=== PATIENT | male | born 1945 | race Hispanic/Latino ===

== ENCOUNTER 2017-06-13 13:45 | Emergency (ER) | payer OTHER ==
[2017-06-13] MEDS ORDERED: NA CHLORIDE 0.9% 500 ML ONE (14:10)
[2017-06-13 14:55] LABS: Potassium 4.1 mEq/L (3.6-5.0)
--- NOTE | 2017-06-13 14:55 | RAD REPORT ---
EXAM DESCRIPTION: CT - Head Brain Wo Cont - 06/13/2017 2:32 pm CLINICAL HISTORY: Syncope, headache. COMPARISON: 03/05/2016 TECHNIQUE: All CT scans are performed using dose optimization technique as appropriate and may inclu de automated exposure control or mA/KV adjustment according to patient size. FINDINGS: No intracranial hemorrhage, hydrocephalus or extra-axial fluid collection.Mild generalized brain atrophy is present with mild periventricular and deep white matter chronic microvascular ische ciaran changes.No areas of brain edema or evidence of midline shift. The paranasal sinuses and mastoids are clear. The calvarium is intact. IMPRESSION: No acute intracranial abnormality.
[2017-06-13 14:58] LABS: Absolute Lymphocytes (CBC) 2.7 K/uL (0.7-4.9); Absolute Monocytes 0.8 K/uL (0.1-1.3); Absolute Neutrophil 5.4 K/uL (1.8-8.0); Basophils % 0.4 % (0-1.3); Eosinophils % 1.3 % (0-4.4); Hematocrit 38.5 % (39.6-49.0); MCH 30.9 pg (27.0-35.0); MCV 92.6 fL (80-100); MPV 9.7 fL (7.6-11.3); Monocytes % 8.6 % (3.3-12.3); RBC Red Blood Cell Count 4.16 M/uL (4.33-5.43)
--- NOTE | 2017-06-13 16:27 | EKG ---
Test Date: 2017-06-13 Test Time: 14:54:48 Forensic Scientist: TREVER MEASUREMENT RESULTS: Intervals: Rate: 48 DE: 124 QRSD: 88 QT: 472 QTc: 421 [place]: P: 39 DE: 124 QRS: 5 T: 20 INTERPRETIVE STATEMENTS: Sinus bradycardia Otherwise normal ECG Compared to ECG 03/05/2016 08:57:24 Sinus rhythm no longer present Incomplete right bundle-branch block no longer present Electronically Signed On 06-13-17 16:26:55 CDT by Se Malik
--- NOTE | 2017-06-13 16:47 | ER ---
Nurse's Notes [facility] Name: Koby Gilman Age: 71 yrs Sex: Male : 1945 Arrival Date: 06/13/2017 Time: 13:49 Bed 8 Private MD: Diagnosis: Syncope and collapse Presentation: 06/13 13:44 Presenting complaint: [place] and had a sv syncopal episode. No head injury. BS -120, HR 40-50s, SBP on arrival was 80, NS 600 ml bolus given and placed in Trendelenburg, SBP up to 104. A\T\O x1 normal. Transition of care: patient was not received from another setting of care. Onset of symptoms was June 13, 2017. Care prior to arrival: IV initiated. 18 GA, in the right forearm, Glucose check: 120. 13:44 Method Of Arrival: EMS: [facility] sv 13:44 Acuity: EDWAR 2 sv Triage Assessment: 13:50 General: Appears in no apparent distress. comfortable, well developed, Behavior is sv calm, cooperative, appropriate for age. Pain: Denies pain. EENT: No signs and/or symptoms were reported regarding the EENT system. Neuro: Level of Consciousness is awake, alert, obeys commands, Oriented to person, Moves all extremities. Reports Family reports syncopal episode. Respiratory: Respiratory effort is even, unlabored, Respiratory pattern is regular, symmetrical. Derm: Skin is pink, warm \T\ dry. Historical: - Allergies: 13:55 NKA; sv - Home Meds: 13:55 donepezil 10 mg Oral tab twice a day [Active]; Namenda 28 mg Oral daily [Active]; sv topiramate 25 mg Oral tab 2 times per day [Active]; - PMHx: 13:55 acid reflux; Dementia; sv - PSHx: 13:55 None; sv - Family history:: not pertinent. - Hospitalizations: : No recent hospitalization is reported. Screenin:57 Abuse screen: Denies threats or abuse. Denies injuries from another. Nutritional sv screening: No deficits noted. Tuberculosis screening: No symptoms or risk factors identified. Fall Risk No fall in past 12 months (0 pts). Secondary diagnosis (15 points) Alzheimer's, dementia, IV access (20 points). Ambulatory Aid- None/Bed Rest/Nurse Assist (0 pts). Gait- Normal/Bed Rest/Wheelchair (0 pts) Mental Status- Overestimates/Forgets Limitations (15 pts.). Total Larose Fall Scale indicates High Risk Score (45 or more points). Fall prevention measures have been instituted. Side Rails Up X 2 Placed Close to Nursing Station Frequent Obs/Assessments Occuring Family Present and informed to notify staff if the need to leave the bedside As available patient and family educated on Fall Prevention Program and Strategies. Assessment: 14:00 Reassessment: See triage assessment. sv 15:38 Reassessment: Patient appears in no apparent distress at this time. No changes from sv previously documented assessment. Patient and/or family updated on plan of care and expected duration. Pain level reassessed. Patient is alert, oriented x 3, equal unlabored respirations, skin warm/dry/pink. Vital Signs: 13:56 BP 123 / 59; Pulse 49; Resp 12; Temp 97.9; Pulse Ox 96% ; Weight 80.74 kg; Height 5 ft. sv 6 in. (167.64 cm); Pain 0/10; 14:57 BP 123 / 62; Pulse 46; Resp 13; Pulse Ox 100% on R/A; sv 15:39 BP 140 / 70; Pulse 61; Resp 12; Pulse Ox 99% ; sv 16:30 BP 145 / 65; Pulse 56; Resp 14; Pulse Ox 98% ; ag 17:04 BP 143 / 71; Pulse 63; Resp 16; Pulse Ox 98% on R/A; ag 13:56 Body Mass Index 28.73 (80.74 kg, 167.64 cm) sv ED Course: 13:44 Maintain EMS IV. Dressing intact. Good blood return noted. Gauge \T\ site: 18G R FA. sv 13:49 Patient arrived in ED. sv 13:49 Ni Pradhan, MARIANN is Primary Nurse. sv 13:51 Triage completed. sv 13:55 Freddy Quarles MD is Attending Physician. rn 13:56 Arm band placed on right wrist. sv 13:58 Patient has correct armband on for positive identification. Bed in low position. Call sv light in reach. Side rails up X2. Adult w/ patient. fish cutting machine operator on. Pulse ox on. NIBP on. Door closed. Head of bed elevated. 14:[address] via wheelchair. sj 14:32 CT Head Brain wo Cont In Process Unspecified. EDMS 15:19 EKG done, by food technologist. reviewed by Freddy Quarles MD. at1 Administered Medications: 14:18 Drug: NS 0.9% 500 ml Route: IV; Rate: bolus; Site: right forearm; sv 15:38 Follow up: Response: No adverse reaction; IV Status: Completed infusion; IV Intake: sv 500ml Intake: 15:38 IV: 500ml; Total: 500ml. sv Outcome: 16:47 Discharge ordered by . rn 17:39 Patient left the ED. sv Signatures: Dispatcher [employer] EDMS Ni Pradhan, RN RN Harini Ramirez, MD MD mariann Hayes Amanda, foundation relations manager EKG Tat1 Asia Iraheta ag
--- NOTE | 2017-06-13 16:47 | EDPHYS ---
Physician Documentation [facility] Name: Koby Gilman Age: 71 yrs Sex: Male : 1945 Arrival Date: 06/13/2017 Time: 13:49 Bed 8 Private MD: ED Physician Freddy Quarles HPI: 06/13 16:43 This 71 yrs old Male presents to ER via EMS with complaints of Syncope. rn 16:43 The patient has experienced syncope. Onset: The symptoms/episode began/occurred just rn prior to arrival. Duration: This was a single episode. Associated injury: The patient did not suffer any apparent associated injury. The patient has not experienced similar symptoms in the past. reports hx of dementia, no previous syncope, was sitting and saw him hunched over, no seizure, woke up and laid him on floor, didn't want to call 911 but someone else did, now at baseline, denies new medication, no vomiting/diarrhea/fever/cough recently. . Historical: - Allergies: 13:55 NKA; sv - Home Meds: 13:55 donepezil 10 mg Oral tab twice a day [Active]; Namenda 28 mg Oral daily [Active]; sv topiramate 25 mg Oral tab 2 times per day [Active]; - PMHx: 13:55 acid reflux; Dementia; sv - PSHx: 13:55 None; sv - Immunization history:: Adult Immunizations up to date. - Family history:: not pertinent. - Social history:: Smoking status: Patient/guardian denies using tobacco. - Hospitalizations: : No recent hospitalization is reported. ROS: 16:43 Constitutional: Negative for fever, chills, and weight loss, Eyes: Negative for injury, rn pain, redness, and discharge, Neck: Negative for injury, pain, and swelling, Cardiovascular: Negative for chest pain, palpitations, and edema, Respiratory: Negative for shortness of breath, cough, wheezing, and pleuritic chest pain, Abdomen/GI: Negative for abdominal pain, nausea, vomiting, diarrhea, and constipation, Back: Negative for injury and pain, MS/Extremity: Negative for injury and deformity, Skin: Negative for injury, rash, and discoloration, Neuro: Negative for headache, weakness, numbness, tingling, and seizure. Exam: 16:43 Abdomen/GI: Exam negative for rn 16:43 Constitutional: This is a well developed, well nourished patient who is awake, alert, and in no acute distress. Head/Face: Normocephalic, atraumatic. Eyes: Pupils equal round and reactive to light, extra-ocular motions intact. Lids and lashes normal. Conjunctiva and sclera are non-icteric and not injected. Cornea within normal limits. Periorbital areas with no swelling, redness, or edema. Neck: Trachea midline, no thyromegaly or masses palpated, and no cervical lymphadenopathy. Supple, full range of motion without nuchal rigidity, or vertebral point tenderness. No Meningismus. Cardiovascular: Regular rate and rhythm with a normal S1 and S2. No gallops, murmurs, or rubs. Normal PMI, no JVD. No pulse deficits. Respiratory: Lungs have equal breath sounds bilaterally, clear to auscultation and percussion. No rales, rhonchi or wheezes noted. No increased work of breathing, no retractions or nasal flaring. Abdomen/GI: Soft, non-tender, with normal bowel sounds. No distension or tympany. No guarding or rebound. No evidence of tenderness throughout. MS/ Extremity: Pulses equal, no cyanosis. Neurovascular intact. Full, normal range of motion. Equal circumference. Neuro: Awake and alert, GCS 15, oriented to person, and situation. Cranial nerves II-XII grossly intact. Motor strength 5/5 in all extremities. Sensory grossly intact. Cerebellar exam normal. Vital Signs: 13:56 BP 123 / 59; Pulse 49 MON; Resp 12; Temp 97.9; Pulse Ox 96% ; Weight 80.74 kg; Height 5 sv ft. 6 in. (167.64 cm); Pain 0/10; 14:57 BP 123 / 62; Pulse 46; Resp 13; Pulse Ox 100% on R/A; sv 15:39 BP 140 / 70; Pulse 61; Resp 12; Pulse Ox 99% ; sv 16:30 BP 145 / 65; Pulse 56 MON; Resp 14; Pulse Ox 98% ; sv 17:04 BP 143 / 71; Pulse 63; Resp 16; Pulse Ox 98% on R/A; ag 13:56 Body Mass Index 28.73 (80.74 kg, 167.64 cm) sv 13:56 Sinus bradycardia sv 16:30 Sinus bradycardia sv MDM: 13:55 Patient medically screened. rn 16:43 Differential Diagnosis: cardiac arrhythmia, idiopathic syncope, vasovagal episode. Data rn reviewed: vital signs, nurses notes, lab test result(s), EKG, radiologic studies, and as a result, I will. Counseling: I had a detailed discussion with the patient and/or guardian regarding: the historical points, exam findings, and any diagnostic results supporting the discharge/admit diagnosis, lab results, radiology results. ED course: initally did not want any labs or imaging, I convinced her to atleast screen with w/u, she agreed, but now wants to go home, does not want to be observed in hospital. She understands risks of taking him home. . 06/13 14:08 Order name: Urine Microscopic Only rn 06/13 14:08 Order name: Troponin (emerg Dept Use Only); Complete Time: 15:03 rn 06/13 14:08 Order name: Basic Metabolic Panel; Complete Time: 15:03 rn 06/13 14:08 Order name: CBC with Diff; Complete Time: 15:03 rn 06/13 14:08 Order name: Magnesium; Complete Time: 15:03 rn 06/13 16:25 Order name: Urine Dipstick-Ancillary EDDE 06/13 14:08 Order name: CT Head Brain wo Cont; Complete Time: 15:03 rn 06/13 14:08 Order name: EKG; Complete Time: 14:09 rn 06/13 14:08 Order name: Cardiac monitoring; Complete Time: 14:18 rn 06/13 14:08 Order name: EKG - Nurse/Tech; Complete Time: 15:39 rn 06/13 14:08 Order name: IV Saline Lock; Complete Time: 14:18 rn 06/13 14:08 Order name: Labs collected and sent; Complete Time: 14:18 rn 06/13 14:08 Order name: NPO; Complete Time: 14:19 rn 06/13 14:08 Order name: O2 Per Protocol; Complete Time: 14:19 rn 06/13 14:08 Order name: O2 Sat Monitoring; Complete Time: 14:19 rn 06/13 14:08 Order name: Urine Dipstick-Ancillary (obtain specimen); Complete Time: 16:07 rn Administered Medications: 14:18 Drug: NS 0.9% 500 ml Route: IV; Rate: bolus; Site: right forearm; sv 15:38 Follow up: Response: No adverse reaction; IV Status: Completed infusion; IV Intake: sv 500ml Disposition: 06/13/17 16:47 Discharged to Home. Impression: Syncope and collapse. - Condition is Stable. - Discharge Instructions: Syncope. - Medication Reconciliation Form, Thank You Letter, Antibiotic Education, Prescription Opioid Use form. - Follow up: Private Physician; When: As needed; Reason: Recheck today's complaints, Re-evaluation by your physician. - Problem is new. - Symptoms have improved. Signatures: Dispatcher [employer] Ni Cheung RN RN sv Freddy Quarles MD MD rn
[2017-06-13 16:53] LABS: Urine Blood NEGATIVE (NEG); Urine Glucose NEGATIVE (NEG); Urine Protein TRACE (NEG); Urine Specific Gravity 1.015 (1.005-1.030)
[2017-06-13 17:04] LABS: Urine Amorphous Sediment 1+ /HPF (NONE SEEN); Urine Bacteria <20 /HPF (NONE SEEN); Urine Culture Reflex Order NOT NEEDED; Urine Mucus 4+ /HPF (NONE SEEN); Urine RBC <5 /HPF (NONE SEEN)
[2017-06-13 17:58] VITALS: TEMP 97.9
[2017-06-13 18:02] VITALS: O2SAT 98
[2017-06-13 18:03] VITALS: BP 143/71
== END 2017-06-13 17:39 | disposition home or self-care (01) ==
LOC: ER 13:45
DX: R55 Syncope and collapse (principal); F03.90 Unspecified dementia, unspecified severity, without behavioral disturbance, psychotic disturbance, mood disturbance, and anxiety
CPT/HCPCS: 36415; 70450; 80048; 81003; 81015; 83735; 84484; 85025; 93005; 96360; 99285

== ENCOUNTER 2018-07-01 12:50 | Emergency (ER) | payer OTHER ==
--- OUTSIDE RECORDS SUMMARY | 2018-07-01 12:51 | XMS REPORT | Continuity of Care Document ---
:1945 Author Organization Interface Problems Problem Status Onset Date Classification Date Comments Source Reported Medications Medication Details Route Status Patient Ordering Order Source Instructions Provider Date Allergies, Adverse Reactions, Alerts Substance Category Reaction Severity Reaction Status Date Comments Source type Reported Immunizations Immunization Date Given Site Status Last Updated Comments Source Results Order Results Value Reference Date Interpretation Comments Source Name Range Vital Signs Vital Sign Value Date Comments Source Encounters Location Location Encounter Encounter Reason Attending ADM DC Status Source Details Type Number For Provider Date Date Visit Outpatient [id number] [facility] 03/01 [facility] [place] Outpatient [id number] [facility] 03/29 [facility] [place] Outpatient [id number] [facility] 07/05 [facility] [place] Procedures Procedure Code Date Perfomer Comments Source
[2018-07-01] MEDS ORDERED: NA CHLORIDE 0.9% 1,000 ML ONE (14:04)
[2018-07-01] MEDS ORDERED: TETANUS & DIPHTHERIA TOX,ADULT 0.5 ML VIAL ONE (14:04)
--- NOTE | 2018-07-01 14:48 | RAD REPORT ---
EXAM DESCRIPTION: CT - Head C Spine Cap Wo Con - 07/01/2018 2:23 pm CLINICAL HISTORY: Fall, head, neck, chest and abdomen pain, symptoms primarily right-sided COMPARISON: None. TECHNIQUE: Axial [address] head images were obtained. Axial [address] cervical spine images were obtain ed with sagittal and coronal reconstruction images reviewed. Axial 5 mm images of the chest, abdomen and pelvis were obtained. All CT scans are performed using dose optimization technique as appropriate and may include automated exposure control or mA/KV adjustment according to patient size. FINDINGS: No intracranial hemorrhage, mass or edema. No midline shift or abnormal fluid collection. Mastoid air cells and paranasal sinuses are clear. No skull fracture. Patient has advanced atrophy a nd chronic ischemic change. Ventricles are in proportion to volume loss. A small right parietal scalp hematoma is present. No foreign body. Cervical bodies are normal in height and alignment. No fracture or acute bone finding.C5-6 and C6-7 d isc space narrowing is present. Multilevel facet joint degenerative change present. There is signific ant right bony foraminal encroachment at C5-6. Canal is borderline stenotic. More mild left-sided C5- 6 and C6-7 bony foraminal encroachment.No prevertebral soft tissue thickening or paraspinal mass.Cent ral canal detail is inherently limited on CT imaging.There is a 4 centimeter long left carotid stent. Patency cannot be assessed on this study. CT chest shows no pneumothorax, pulmonary contusion or pleural fluid collection. No mediastinal hem atoma and the aorta and pulmonary arteries are unremarkable. No chest will mass or abnormal axillary finding. No displaced rib fracture or other significant bony finding. CT abdomen and pelvis show no injury to solid abdominal viscera. Gallbladder and biliary tree are unr emarkable. No bowel injury or significant finding. No free air, free fluid or abnormal stranding. No hernia, mass or bulky lymphadenopathy. No urinary bladder abnormality. Disc and bony degenerative changes are present. No pathologic bone process. No significant or measura ble soft tissue mass or hematoma. IMPRESSION: Advanced atrophy and chronic ischemic changes are present with no acute CT Head intracra nial finding. Advanced cervical spine degenerative change with no acute finding. No acute findings of the chest, abdomen or pelvis.
--- NOTE | 2018-07-01 14:49 | RAD REPORT ---
EXAM DESCRIPTION: RAD - Forearm Right - 07/01/2018 2:42 pm CLINICAL HISTORY: Fall, right arm pain COMPARISON: None. FINDINGS: Elbow and wrist degenerative joint changes are present. There is spurring at the triceps t endon attachment. No fracture is identified. There is no dislocation or periosteal reaction noted. No acute or destructive bone process seen. No foreign body or other soft tissue abnormality. Arterial tree calcifications are present. IMPRESSION: Right wrist and elbow degenerative changes are present with no acute fracture finding.
--- NOTE | 2018-07-01 14:51 | RAD REPORT ---
EXAM DESCRIPTION: RAD - Hand Right 2 View - 07/01/2018 2:43 pm CLINICAL HISTORY: Fall, right hand and wrist pain COMPARISON: None. FINDINGS: Distal radius and ulna are intact. Carpal bone degenerative changes are present most notab le at the trapezium first metacarpal articulation. MCP joint space narrowing present at the third, fo urth and fifth joints. IP joint space narrowing throughout the hand. No erosive or destructive change . On the ulna side of the fifth digit proximal phalanx there is an oblique lucent line present. This is not a typical site for a fracture. Fracture is doubtful without localizing symptoms to the base of the fifth proximal phalanx. There is no dislocation or periosteal reaction noted. No foreign body or other soft tissue abnormali ty. Arterial tree calcifications are present. IMPRESSION: Right hand degenerative changes are present with no acute fracture confirmed. Faint oblique lucency through the ulna side base of the right fifth proximal phalanx is doubtful is a n acute fracture but correlation can be made with any localizing symptoms.
--- NOTE | 2018-07-01 14:52 | RAD REPORT ---
EXAM DESCRIPTION: RAD - Chest Single View - 07/01/2018 2:43 pm CLINICAL HISTORY: Fall from bed, right-sided chest trauma COMPARISON: February 2016 TECHNIQUE: AP portable chest image was obtained 1433 hours . FINDINGS: Lung volumes are low. Lung markings are similar to comparison. No pulmonary contusion or a cute lung parenchymal process. Heart and vasculature are normal. No measurable pleural effusion and n o pneumothorax. No acute bony abnormality seen. No acute aortic findings suspected. IMPRESSION: No acute cardiopulmonary process.
[2018-07-01 15:17] LABS: Protime INR 1.06
[2018-07-01 15:27] LABS: Absolute Lymphocytes (CBC) 1.3 K/uL (0.7-4.9); Absolute Monocytes 1.4 K/uL (0.1-1.3); Absolute Neutrophil 8.7 K/uL (1.8-8.0); Basophils % 0.1 % (0-1.3); Hematocrit 39.7 % (39.6-49.0); Lymphocytes % 11.6 % (15.3-44.8); MPV 9.5 fL (7.6-11.3); Monocytes % 12.6 % (3.3-12.3)
[2018-07-01 15:31] LABS: ALT/SGPT 22 U/L (12-78); AST/SGOT 66 U/L (15-37); Albumin 3.2 g/dL (3.4-5.0); Alkaline Phosphatase 54 U/L (45-117); BUN Blood Urea Nitrogen 13 mg/dL (7-18); Bicarbonate 25 mmol/L (21-32); Bilirubin Direct 0.1 mg/dL (0-0.2); Bilirubin Total 0.4 mg/dL (0.2-1.0); Glucose Level 92 mg/dL (74-106); Lipase 109 U/L (73-393); Magnesium 2.3 mg/dL (1.8-2.4); NT PRO-BNP 383 pg/mL (<125); Protein, Total 6.7 g/dL (6.4-8.2); Sodium Level 144 mmol/L (136-145); Troponin (Emerg Dept Use Only) < 0.02 ng/mL (0.0-0.045)
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
[2018-07-01 15:44] LABS: CKMB Creatine Kinase MB 20.8 ng/mL (0.3-3.6)
[2018-07-01 16:34] VITALS: TEMP 97.9
[2018-07-01 16:37] VITALS: BP 162/69; O2SAT 98
--- NOTE | 2018-07-02 08:48 | EKG ---
Test Date: 2018-07-01 Test Time: 14:49:44 Music Video Producer: [employer] MEASUREMENT RESULTS: Intervals: Rate: 65 OH: 110 QRSD: 88 QT: 418 QTc: 434 [place]: P: 42 OH: 110 QRS: 15 T: 43 INTERPRETIVE STATEMENTS: Sinus rhythm with short OH Otherwise normal ECG Compared to ECG 06/13/2017 14:54:48 Short OH interval now present Sinus bradycardia no longer present Electronically Signed On 07-02-18 08:47:56 CDT by Se Malik
== END 2018-07-01 16:28 | disposition home or self-care (01) ==
LOC: ER 12:50
DX: S00.90XA Unspecified superficial injury of unspecified part of head, initial encounter (principal); S80.921A Unspecified superficial injury of right lower leg, initial encounter; W17.89XA Other fall from one level to another, initial encounter; Y93.89 Activity, other specified; Y92.013 Bedroom of single-family (private) house as the place of occurrence of the external cause; S80.11XA Contusion of right lower leg, initial encounter; T21.21XA Burn of second degree of chest wall, initial encounter; T31.0 Burns involving less than 10% of body surface; T79.9XXA Unspecified early complication of trauma, initial encounter; M62.82 Rhabdomyolysis; F03.90 Unspecified dementia, unspecified severity, without behavioral disturbance, psychotic disturbance, mood disturbance, and anxiety; Z23 Encounter for immunization
CPT/HCPCS: 93005; 85025; 80048; 36415; 83735; 82550; 85610; 80076; 84484; 82553; 83690; 83880; 70450; 71250; 72125; 71045; 73120; 73090; 90471; 90714; 96360; 99285; J7030

== ENCOUNTER 2019-01-25 13:10 | Emergency (ER) | payer OTHER ==
[2019-01-25] MEDS ORDERED: Mastisol Adhesive Liq ONE (14:43)
--- NOTE | 2019-01-25 14:56 | ER ---
Nurse's Notes [facility] Name: Koby Gilman Age: 73 yrs Sex: Male : 1945 Arrival Date: 01/25/2019 Time: 13:17 Bed 13 Private MD: Diagnosis: Facial/Nasal Laceration, Fall , contusion Presentation: 01/25 13:21 Presenting complaint: EMS states: FALL AT HOME WITHOUT LOC, PT AT NEURO BASELINE. bp Transition of care: patient was not received from another setting of care. Onset of symptoms is unknown. Risk Assessment: Do you want to hurt yourself or someone else? Patient reports no desire to harm self or others. Initial Sepsis Screen: Does the patient meet any 2 criteria? No. Patient's initial sepsis screen is negative. Does the patient have a suspected source of infection? No. Patient's initial sepsis screen is negative. Care prior to arrival: IV initiated. 20 GA, in the left antecubital area. 13:21 Method Of Arrival: EMS: [facility] bp 13:21 Acuity: EDWAR 3 bp Triage Assessment: 13:23 General: Appears in no apparent distress. comfortable, Behavior is AT BASELINE. Pain: bp Unable to use pain scale. Does not appear to understand pain scale. EENT: No deficits noted. Neuro: NON-VERBAL AT BASELINE. Cardiovascular: Rhythm is sinus bradycardia. Respiratory: No deficits noted. GI: No signs and/or symptoms were reported involving the gastrointestinal system. : No signs and/or symptoms were reported regarding the genitourinary system. Derm: No deficits noted. Musculoskeletal: Circulation, motion, and sensation intact. Range of motion: intact in all extremities. Injury Description: Laceration sustained to nose SKIN TEAR. Historical: - Allergies: 13:23 NKA; bp - Home Meds: 13:23 Risperdal Oral [Active]; divalproex Oral [Active]; Mirtazapine Oral [Active]; bp - PMHx: 13:23 Dementia; acid reflux; Alzheimers; bp - Immunization history:: Adult Immunizations up to date. - Social history:: Smoking status: Patient/guardian denies using tobacco. - Ebola Screening: : No symptoms or risks identified at this time. Screenin:26 Abuse screen: Denies threats or abuse. Denies injuries from another. Nutritional bp screening: No deficits noted. Tuberculosis screening: No symptoms or risk factors identified. Fall Risk Fall in past 12 months (25 points). Secondary diagnosis (15 points) Alzheimer's, dementia, IV access (20 points). Ambulatory Aid- Crutches/Cane/Walker (15 pts). Gait- Weak (10 pts.). Mental Status- Overestimates/Forgets Limitations (15 pts.). Total Larose Fall Scale indicates High Risk Score (45 or more points). Fall prevention measures have been instituted. Side Rails Up X 2 Placed Close to Nursing Station Frequent Obs/Assessments Occuring Family Present and informed to notify staff if the need to leave the bedside As available patient and family educated on Fall Prevention Program and Strategies. Assessment: 13:26 General: SEE TRIAGE NOTE. bp 15:14 Reassessment: PT D/C HOME VIA W/C WITH FAMILY, DX WITH FACIAL LACERATION. bp Vital Signs: 13:23 BP 113 / 61; Pulse 43; Resp 16; Temp 97.5; Pulse Ox 100% ; Weight 71.67 kg; Height 5 bp ft. 6 in. (167.64 cm); 14:49 BP 124 / 65; Pulse 54; Resp 16; Pulse Ox 100% ; bp 15:15 BP 130 / 59; Pulse 45; Resp 14; Temp 97.6; Pulse Ox 100% ; bp 13:23 Body Mass Index 25.50 (71.67 kg, 167.64 cm) bp Carol Ann Coma Score: 15:00 Eye Response: spontaneous(4). Verbal Response: oriented(5). Motor Response: obeys kdr commands(6). Total: 15. ED Course: 13:17 Patient arrived in ED. hb 13:21 Mariano Blood, RN is Primary Nurse. bp 13:22 Triage completed. bp 13:23 Arm band placed on. bp 13:26 Patient has correct armband on for positive identification. Bed in low position. Call bp light in reach. Side rails up X2. Adult w/ patient. 13:26 Maintain EMS IV. Dressing intact. Good blood return noted. Site clean \T\ dry. Gauge \T\ bp site: 20 GAUGE LEFT AC. 14:20 Rogelio Alvares MD is Attending Physician. kdr 14:48 Wound care: to laceration located on nose was cleaned with soap and water, dressed with bp STERI-STRIPS. 15:14 No provider procedures requiring assistance completed. IV discontinued, intact, bp bleeding controlled, No redness/swelling at site. Pressure dressing applied. Administered Medications: No medications were administered Outcome: 14:55 Discharge ordered by MD. kdr 15:14 Discharged to home via wheelchair, with family. bp 15:14 Condition: stable 15:14 Discharge instructions given to family, Instructed on discharge instructions, follow up and referral plans. medication usage, wound care, Demonstrated understanding of instructions, follow-up care, medications, wound care, Prescriptions given X 1. 15:15 Patient left the ED. bp Signatures: Rogelio Alvares MD MD [facility] Melanie Mancera, RN RN Mariano Blood RN RN bp
--- NOTE | 2019-01-25 14:56 | EDPHYS ---
Physician Documentation [facility] Name: Koby Gilman Age: 73 yrs Sex: Male : 1945 Arrival Date: 01/25/2019 Time: 13:17 Bed 13 Private MD: ED Physician Rogelio Alvares HPI: 01/25 15:00 This 73 yrs old Male presents to ER via EMS with complaints of facial kdr trauma/nose bleed. 15:00 The patient or guardian reports abrasion, injury, a laceration, clean, complex, kdr irregular, pain, tenderness. The complaints affect the bridge of nose. Context of injury: The problem was sustained at home, resulted from a fall, while walking. Onset: The symptoms/episode began/occurred suddenly, just prior to arrival. Associated signs and symptoms: The patient has no apparent associated signs or symptoms, Loss of consciousness: This patient did not experience any loss of consciousness. Severity of symptoms: At their worst the symptoms were mild, in the emergency department the symptoms are unchanged. The patient has not experienced similar symptoms in the past. The patient has not recently seen a physician. Historical: - Allergies: 13:23 NKA; bp - Home Meds: 13:23 Risperdal Oral [Active]; divalproex Oral [Active]; Mirtazapine Oral [Active]; bp - PMHx: 13:23 Dementia; acid reflux; Alzheimers; bp - Immunization history:: Adult Immunizations up to date. - Social history:: Smoking status: Patient/guardian denies using tobacco. - Ebola Screening: : No symptoms or risks identified at this time. ROS: 15:00 Constitutional: Negative for fever, chills, and weight loss, Eyes: Negative for injury, kdr pain, redness, and discharge, Neck: Negative for injury, pain, and swelling, Cardiovascular: Negative for chest pain, palpitations, and edema, Respiratory: Negative for shortness of breath, cough, wheezing, and pleuritic chest pain, Abdomen/GI: Negative for abdominal pain, nausea, vomiting, diarrhea, and constipation, Back: Negative for injury and pain, : Negative for injury, bleeding, discharge, and swelling, MS/Extremity: Negative for injury and deformity, Neuro: Negative for headache, weakness, numbness, tingling, and seizure activity. Psych: Negative for depression, anxiety, suicide ideation, homicidal ideation, and hallucinations, Allergy/Immunology: Negative for hives, rash, and allergies, Endocrine: Negative for neck swelling, polydipsia, polyuria, polyphagia, and marked weight changes, Hematologic/Lymphatic: Negative for swollen nodes, abnormal bleeding, and unusual bruising. 15:00 Skin: Positive for abrasion(s), erythema. Exam: 15:00 Constitutional: This is a well developed, well nourished patient who is awake, alert, kdr and in no acute distress. Head/Face: Normocephalic, atraumatic. Eyes: Pupils equal round and reactive to light, extra-ocular motions intact. Lids and lashes normal. Conjunctiva and sclera are non-icteric and not injected. Cornea within normal limits. Periorbital areas with no swelling, redness, or edema. Neck: Trachea midline, no thyromegaly or masses palpated, and no cervical lymphadenopathy. Supple, full range of motion without nuchal rigidity, or vertebral point tenderness. No Meningismus. Chest/axilla: Normal chest wall appearance and motion. Nontender with no deformity. No lesions are appreciated. Cardiovascular: Regular rate and rhythm with a normal S1 and S2. No gallops, murmurs, or rubs. Normal PMI, no JVD. No pulse deficits. Respiratory: Lungs have equal breath sounds bilaterally, clear to auscultation and percussion. No rales, rhonchi or wheezes noted. No increased work of breathing, no retractions or nasal flaring. Abdomen/GI: Soft, non-tender, with normal bowel sounds. No distension or tympany. No guarding or rebound. No evidence of tenderness throughout. Back: No spinal tenderness. No costovertebral tenderness. Full range of motion. Skin: Warm, dry with normal turgor. Normal color with no rashes, no lesions, and no evidence of cellulitis. MS/ Extremity: Pulses equal, no cyanosis. Neurovascular intact. Full, normal range of motion. Neuro: Awake and alert, GCS 13, - demnetia. Cranial nerves II-XII grossly intact. Motor strength 5/5 in all extremities. Sensory grossly intact. Cerebellar exam normal. Psych: Awake, alert, with orientation to person, place and time. Behavior, mood, and affect are within normal limits. Vital Signs: 13:23 BP 113 / 61; Pulse 43; Resp 16; Temp 97.5; Pulse Ox 100% ; Weight 71.67 kg; Height 5 bp ft. 6 in. (167.64 cm); 14:49 BP 124 / 65; Pulse 54; Resp 16; Pulse Ox 100% ; bp 15:15 BP 130 / 59; Pulse 45; Resp 14; Temp 97.6; Pulse Ox 100% ; bp 13:23 Body Mass Index 25.50 (71.67 kg, 167.64 cm) bp Bellwood Coma Score: 15:00 Eye Response: spontaneous(4). Verbal Response: oriented(5). Motor Response: obeys kdr commands(6). Total: 15. MDM: 14:55 Patient medically screened. kdr 18:00 Data reviewed: vital signs, nurses notes, lab test result(s). Counseling: I had a kdr detailed discussion with the patient and/or guardian regarding: the historical points, exam findings, and any diagnostic results supporting the discharge/admit diagnosis, lab results, the need for outpatient follow up. 01/25 14:37 Order name: [place]. Order: Steri-strip nose wound; Complete Time: 14:48 kdr Administered Medications: No medications were administered Disposition: 01/25/19 14:55 Discharged to Home. Impression: Facial/Nasal Laceration, Fall , contusion. - Condition is Stable. - Discharge Instructions: Facial Laceration, [id number], Nasal Fracture, [id number]. - Prescriptions for Keflex 500 mg Oral Capsule - take 1 capsule by ORAL route every 8 hours for 3 days; 12 capsule. - Medication Reconciliation Form, Thank You Letter, Antibiotic Education form. - Follow up: Private Physician; When: 2 - 3 days; Reason: If symptoms return, Further diagnostic work-up, Recheck today's complaints, Continuance of care, Re-evaluation by your physician. - Problem is new. - Symptoms have improved. Signatures: Rogelio Alvares MD MD kdr Mariano Blood RN RN bp Corrections: (The following items were deleted from the chart) 15:15 14:55 01/25/2019 14:55 Discharged to Home. Impression: Facial/Nasal Laceration, Fall , bp contusion. Condition is Stable. Forms are Medication Reconciliation Form, Thank You Letter, Antibiotic Education, Prescription Opioid Use. Follow up: Private Physician; When: 2 - 3 days; Reason: If symptoms return, Further diagnostic work-up, Recheck today's complaints, Continuance of care, Re-evaluation by your physician. Problem is new. Symptoms have improved. kdr
== END 2019-01-25 15:15 | disposition home or self-care (01) ==
LOC: ER 13:10
DX: S01.21XA Laceration without foreign body of nose, initial encounter (principal); W19.XXXA Unspecified fall, initial encounter; Y93.01 Activity, walking, marching and hiking; Y92.009 Unspecified place in unspecified non-institutional (private) residence as the place of occurrence of the external cause; G30.9 Alzheimer's disease, unspecified; F02.80 Dementia in other diseases classified elsewhere, unspecified severity, without behavioral disturbance, psychotic disturbance, mood disturbance, and anxiety
CPT/HCPCS: 99284

== ENCOUNTER 2019-05-03 12:03 | Emergency (ER) | payer OTHER ==
[2019-05-03] MEDS ORDERED: NA CHLORIDE 0.9% 0 ML ONE (14:29)
[2019-05-03] MEDS ORDERED: NA CHLORIDE 0.9% 250 ML ONE (14:31)
[2019-05-03 14:37] LABS: Basophils % 0.3 % (0-1.3); Hematocrit 34.5 % (39.6-49.0); Lymphocytes % 8.3 % (15.3-44.8); MPV 9.6 fL (7.6-11.3); RBC Red Blood Cell Count 3.69 M/uL (4.33-5.43)
--- NOTE | 2019-05-03 14:38 | RAD REPORT ---
EXAM DESCRIPTION: Nimesh Single View05/03/2019 2:29 pm CLINICAL HISTORY: Leukocytosis COMPARISON: 2018 FINDINGS: The lungs appear clear of acute infiltrate. The heart is normal size IMPRESSION: No acute abnormalities displayed
[2019-05-03 14:57] LABS: ALT/SGPT 13 U/L (12-78); AST/SGOT 18 U/L (15-37); Albumin 2.6 g/dL (3.4-5.0); Alkaline Phosphatase 57 U/L (45-117); BUN Blood Urea Nitrogen 15 mg/dL (7-18); Bicarbonate 30 mmol/L (21-32); Bilirubin Direct 0.1 mg/dL (0-0.2); Bilirubin Total 0.3 mg/dL (0.2-1.0); Glucose Level 96 mg/dL (74-106); Magnesium 2.1 mg/dL (1.8-2.4); NT PRO-BNP 581 pg/mL (<125); Potassium 3.8 mmol/L (3.5-5.1); Sodium Level 142 mmol/L (136-145); Troponin (Emerg Dept Use Only) < 0.02 ng/mL (0.0-0.045)
[2019-05-03 15:01] LABS: Urine Blood 2+ (NEG); Urine Glucose NEGATIVE (NEG); Urine Protein 1+ (NEG); Urine Specific Gravity 1.025 (1.005-1.030)
[2019-05-03 15:03] LABS: Protime INR 1.11
[2019-05-03 15:48] LABS: Urine Bacteria >50 /HPF (NONE SEEN)
[2019-05-03] MEDS ORDERED: CEFTRIAXONE/SWI 1gm 1 GM/10 ML SYR ONE (16:07)
[2019-05-03] MEDS ORDERED: CIPROFLOXACIN HCL 500 MG TAB ONE (16:16)
[2019-05-03] MEDS ORDERED: NA CHLORIDE 0.9% 500 ML ONE (16:16)
--- NOTE | 2019-05-03 17:02 | ER ---
Nurse's Notes [facility] Name: Koby Gilman Age: 73 yrs Sex: Male : 1945 Arrival Date: 05/03/2019 Time: 12:06 Bed 26 Private MD: Diagnosis: Urinary tract infection, site not specified Presentation: 05/02 12:12 Chief complaint: Spouse and/or significant other states: "Dr. Lainez sent him here aa5 because his blood work showed infection". Coronavirus screen: The patient has NOT traveled to a country currently being monitored by the [facility] within the last 14 days. The patient has NOT had contact with any known and/or suspected case of coronavirus. Ebola Screen: Patient negative for fever greater than or equal to 101.5 degrees Fahrenheit, and additional compatible Ebola Virus Disease symptoms. Initial Sepsis Screen: Does the patient meet any 2 criteria? No. Patient's initial sepsis screen is negative. Does the patient have a suspected source of infection? No. Patient's initial sepsis screen is negative. Risk Assessment: Do you want to hurt yourself or someone else? Unable to obtain. 12:12 Method Of Arrival: Wheelchair aa5 12:12 Acuity: EDWAR 3 aa5 17:13 Onset of symptoms is unknown. vc Historical: - Allergies: 12:14 NKA; aa5 - PMHx: 12:14 acid reflux; Alzheimers; aa5 - Immunization history:: Adult Immunizations unknown. - Social history:: Smoking status: Patient denies any tobacco usage or history of. Screenin:54 Abuse screen: Denies threats or abuse. Nutritional screening: No deficits noted. vc Tuberculosis screening: No symptoms or risk factors identified. Fall Risk None identified. Assessment: 12:52 General: Appears in no apparent distress. Behavior is calm, cooperative, quiet. Pain: vc Denies pain. Neuro: Level of Consciousness is awake, alert, obeys commands, Oriented to person, place. Cardiovascular: Capillary refill < 3 seconds Clubbing of nail beds is absent Patient's skin is warm and dry. Respiratory: Airway is patent Respiratory effort is even, unlabored, Respiratory pattern is regular, symmetrical. GI: No signs and/or symptoms were reported involving the gastrointestinal system. : No signs and/or symptoms were reported regarding the genitourinary system. EENT: No signs and/or symptoms were reported regarding the EENT system. Derm: Skin temperature is warm. Musculoskeletal: Range of motion: intact in all extremities. 14:00 Reassessment: Patient and/or family updated on plan of care and expected duration. Pain vc level reassessed. Patient denies pain at this time. 15:00 Reassessment: Patient and/or family updated on plan of care and expected duration. Pain vc level reassessed. Patient denies pain at this time. 16:00 Reassessment: Patient and/or family updated on plan of care and expected duration. Pain vc level reassessed. Patient denies pain at this time. 17:00 Reassessment: Patient and/or family updated on plan of care and expected duration. Pain vc level reassessed. Patient denies pain at this time. Vital Signs: 12:12 BP 106 / 60; Pulse 62; Resp 18 S; Temp 97.9(O); Pulse Ox 100% on R/A; aa5 13:25 BP 108 / 65; Pulse 62; Resp 15; Temp 98.0(O); Pulse Ox 99% on R/A; mh5 14:00 BP 131 / 62; Pulse 61; Resp 17; Temp 97.8(A); Pulse Ox 100% on R/A; mh5 15:00 BP 111 / 97; Pulse 63; Resp 16; Temp 98.9(A); Pulse Ox 100% on R/A; mh5 16:41 BP 141 / 81; Pulse 59; Resp 16; Temp 98.7(A); Pulse Ox 99% on R/A; mh5 17:00 BP 145 / 74; Pulse 100; Resp 17; Temp 98.4(A); Pulse Ox 98% on R/A; mh5 ED Course: 12:06 Patient arrived in ED. fj1 12:12 Arm band placed on. aa5 12:14 Triage completed. aa5 12:18 Calderon Guy PA is PHCP. cp 12:18 Calderon Kline MD is Attending Physician. cp 12:19 Barb Reyez, MARIANN is Primary Nurse. vc 13:00 Patient has correct armband on for positive identification. Call light in reach. vc monitor and storage bin tender on. Pulse ox on. NIBP on. 14:08 EKG done, by heavy equipment service technician. reviewed by Calderon Kline MD. at1 14:10 Missed attempt(s): 22 gauge in right antecubital area. vc 14:15 Inserted saline lock: 22 gauge in right forearm, using aseptic technique. vc 14:23 Influenza Screen (a \\T\\ B) Sent. vc 17:11 No provider procedures requiring assistance completed. IV discontinued, intact, vc bleeding controlled, No redness/swelling at site. Pressure dressing applied. Administered Medications: 15:08 Drug: NS 0.9% 250 ml Route: IV; Rate: bolus; Site: right forearm; vc 16:09 Drug: Rocephin - (cefTRIAXone) 1 grams Route: IVPB; Infused Over: 30 mins; Site: right vc forearm; 16:17 Drug: Ciprofloxacin 500 mg Route: PO; vc 16:45 Follow up: Response: No adverse reaction vc 16:18 Drug: NS 0.9% 500 ml Route: IV; Rate: 500 ml/hr; Site: right forearm; vc 16:50 Follow up: IV Status: Completed infusion; IV Intake: 500ml vc Intake: 16:50 IV: 500ml; Total: 500ml. vc Outcome: 17:01 Discharge ordered by MD. cp 17:12 Discharged to home via wheelchair, with significant other. vc 17:12 Condition: good 17:12 Discharge instructions given to significant other, Instructed on discharge instructions, follow up and referral plans. medication usage, Demonstrated understanding of instructions, follow-up care, medications, Prescriptions given X 1. 17:13 Patient left the ED. vc Addendum: 05/05/2019 07:15 Addendum: Culture Results: Positive urine culture. No further action required. Bacteria e b sensitive to prescribed antibiotic. Signatures: Jazmin Hassan, RN RN aa5 Amelia Botello, aemt EKG Tat1 Calderon Guy PA PA cp Martinez, Maria 5 Marlene Peña Vanessa RN RN Kevin Nielson fj1
--- NOTE | 2019-05-03 17:02 | EDPHYS ---
Physician Documentation [facility] Name: Koby Gilman Age: 73 yrs Sex: Male : 1945 Arrival Date: 05/03/2019 Time: 12:06 Bed 26 Private MD: ED Physician Calderon Kline HPI: 05/02 13:50 This 73 yrs old Male presents to ER via Wheelchair with complaints of Abnormal cp Lab Results, sent by Dr. Lainez. 13:50 abnormal labs. cp 13:50 Severity of symptoms: in the emergency department the symptoms are unchanged despite cp home interventions. The patient has been recently seen by a physician: Dr. Lainez yesterday, for apparently unrelated complaints, patient was seen for a routine check, sent to ED for evaluation of elevated WBCs. Historical: - Allergies: 12:14 NKA; aa5 - PMHx: 12:14 acid reflux; Alzheimers; aa5 - Immunization history:: Adult Immunizations unknown. - Social history:: Smoking status: Patient denies any tobacco usage or history of. ROS: 14:00 Constitutional: Negative for fever. cp 14:00 Eyes: Negative for injury, pain, redness, and discharge. cp 14:00 ENT: Negative for drainage from ear(s), difficulty swallowing, difficulty handling secretions. 14:00 Cardiovascular: Negative for chest pain, edema. 14:00 Respiratory: Negative for cough, wheezing. 14:00 Abdomen/GI: Negative for abdominal pain, vomiting, diarrhea, constipation. 14:00 Skin: Negative for rash. 14:00 Neuro: Negative for altered mental status. 14:00 All other systems are negative. Exam: 14:05 Constitutional: The patient appears in no acute distress, alert, awake, cp non-diaphoretic, non-toxic, well developed, frail. 14:05 Head/Face: Normocephalic, atraumatic. cp 14:05 Eyes: Periorbital structures: appear normal, Pupils: equal, round, and reactive to light and accomodation, Conjunctiva: normal, no exudate, no injection, Sclera: no appreciated abnormality, Lids and lashes: appear normal, bilaterally. 14:05 ENT: External ear(s): are unremarkable, Ear canal(s): are normal, clear, TM's: bulging, is not appreciated, bilaterally, dullness, bilaterally, erythema, is not appreciated, bilaterally, Nose: is normal, Mouth: Lips: dry, Oral mucosa: moist, Posterior pharynx: Airway: no evidence of obstruction, patent, erythema, is not appreciated, exudate, is not appreciated. 14:05 Neck: ROM/movement: Meningeal signs: are not present, nuchal rigidity, is not appreciated. 14:05 Chest/axilla: Inspection: normal, Palpation: is normal, no crepitus, no tenderness. 14:05 Cardiovascular: Rate: normal, Rhythm: regular, Edema: is not appreciated, JVD: is not appreciated. 14:05 Respiratory: the patient does not display signs of respiratory distress, Respirations: normal, no use of accessory muscles, no retractions, labored breathing, is not present, Breath sounds: are clear throughout, no decreased breath sounds, no stridor, no wheezing. 14:05 Abdomen/GI: Inspection: abdomen appears normal, Bowel sounds: active, all quadrants, Palpation: abdomen is soft and non-tender, in all quadrants, involuntary guarding, is not appreciated. 14:05 Back: CVA tenderness, is absent. 14:05 Skin: no rash present. 14:05 Neuro: Orientation: no acute changes, per family, Mentation: no acute changes, per family, Motor: moves all fours, strength is normal. Vital Signs: 12:12 BP 106 / 60; Pulse 62; Resp 18 S; Temp 97.9(O); Pulse Ox 100% on R/A; aa5 13:25 BP 108 / 65; Pulse 62; Resp 15; Temp 98.0(O); Pulse Ox 99% on R/A; mh5 14:00 BP 131 / 62; Pulse 61; Resp 17; Temp 97.8(A); Pulse Ox 100% on R/A; mh5 15:00 BP 111 / 97; Pulse 63; Resp 16; Temp 98.9(A); Pulse Ox 100% on R/A; mh5 16:41 BP 141 / 81; Pulse 59; Resp 16; Temp 98.7(A); Pulse Ox 99% on R/A; mh5 17:00 BP 145 / 74; Pulse 100; Resp 17; Temp 98.4(A); Pulse Ox 98% on R/A; mh5 MDM: 12:23 Patient medically screened. osvaldo 14:00 Differential Diagnosis sepsis, flu, UTI, pneumonia. cp 17:00 Data reviewed: vital signs, nurses notes, lab test result(s), EKG, radiologic studies, cp plain films. 17:00 Test interpretation: by ED physician or midlevel provider: ECG, plain radiologic cp studies, chest xray negative for infiltrates. Counseling: I had a detailed discussion with the patient and/or guardian regarding: the historical points, exam findings, and any diagnostic results supporting the discharge/admit diagnosis, lab results, radiology results, the need for outpatient follow up, a family practitioner, to return to the emergency department if symptoms worsen or persist or if there are any questions or concerns that arise at home. Response to treatment: the patient's symptoms have mildly improved after treatment. ED course: Discussed admission for UTI with who declines at this time and will try outpatient treatment. 05/02 13:44 Order name: Basic Metabolic Panel 05/02 13:44 Order name: CBC with Diff 05/02 13:44 Order name: LFT's 05/02 13:44 Order name: Magnesium cp 05/02 13:44 Order name: NT PRO-BNP cp 05/02 13:44 Order name: PT-INR 05/02 13:44 Order name: Troponin (emerg Dept Use Only) cp 05/02 13:44 Order name: Procalcitonin cp 05/02 13:44 Order name: Lactate cp 05/02 13:44 Order name: Blood Culture Adult (2) 05/02 13:44 Order name: Urine Microscopic Only cp 05/02 13:44 Order name: Influenza Screen (a \T\ B) 05/02 14:52 Order name: Lactate; Complete Time: 14:55 EDMS 05/02 15:30 Interpretation: Within normal limits: LAC 1.9. cp 05/02 14:56 Order name: Urine Dipstick--Ancillary (enter results) eb 05/02 13:44 Order name: XRAY Chest (1 view) cp 05/02 14:43 Order name: RAD; Complete Time: 14:55 EDMS 05/02 15:31 Interpretation: Report reviewed. 05/02 14:58 Order name: Basic Metabolic Panel; Complete Time: 15:29 EDMS 05/02 15:29 Interpretation: Normal except: CL 108; CA 8.3. cp 05/02 14:58 Order name: Liver (Hepatic) Function; Complete Time: 15:29 EDMS 05/02 15:29 Interpretation: Normal except: ALB 2.6; GLOB 4.4; A/G 0.6. cp 05/02 14:58 Order name: Troponin (Emerg Dept Use Only); Complete Time: 15:29 EDMS 05/02 15:31 Interpretation: Within normal limits: TROPED < 0.02. cp 05/02 14:58 Order name: NT PRO-BNP; Complete Time: 15:29 EDMS 05/02 14:58 Order name: Magnesium; Complete Time: 15:29 EDMS 05/02 15:01 Order name: Influenza Screen (A ; Complete Time: 15:29 EDMS 05/02 15:02 Order name: Urine Dipstick-Ancillary; Complete Time: 15:29 EDMS 05/02 15:29 Interpretation: Normal except: UBLD 2+; UPROT 1+; UESTR 1+. cp 05/02 15:06 Order name: CBC with Automated Diff; Complete Time: 15:29 EDMS 05/02 15:30 Interpretation: Normal except: WBC 12.0; RBC 3.69; HGB 11.4; HCT 34.5; PLT 127; ERICH% cp 82.6; LYM% 8.3; NEUT A 9.9. 05/02 15:08 Order name: Protime (+INR); Complete Time: 15:29 EDMS 05/02 15:16 Order name: Procalcitonin; Complete Time: 15:29 EDMS 05/02 15:30 Interpretation: Reviewed. cp 05/02 15:48 Order name: Urine Microscopic Only; Complete Time: 15:54 EDMS 05/02 15:55 Interpretation: Normal except: UWBC 20-50; URBC 5-10; UBACT >50. cp 05/02 13:44 Order name: EKG; Complete Time: 13:46 cp 05/02 13:44 Order name: Cardiac monitoring; Complete Time: 14:53 cp 05/02 13:44 Order name: EKG - Nurse/Tech; Complete Time: 14:53 cp 05/02 13:44 Order name: IV Saline Lock; Complete Time: 14:53 cp 05/02 13:44 Order name: Labs collected and sent; Complete Time: 14:53 cp 05/02 13:44 Order name: O2 Per Protocol; Complete Time: 14:53 cp 05/02 13:44 Order name: O2 Sat Monitoring; Complete Time: 14:53 cp 05/02 13:44 Order name: Urine Dipstick-Ancillary (obtain specimen); Complete Time: 14:54 cp Administered Medications: 15:08 Drug: NS 0.9% 250 ml Route: IV; Rate: bolus; Site: right forearm; vc 16:09 Drug: Rocephin - (cefTRIAXone) 1 grams Route: IVPB; Infused Over: 30 mins; Site: right vc forearm; 16:17 Drug: Ciprofloxacin 500 mg Route: PO; vc 16:45 Follow up: Response: No adverse reaction vc 16:18 Drug: NS 0.9% 500 ml Route: IV; Rate: 500 ml/hr; Site: right forearm; vc 16:50 Follow up: IV Status: Completed infusion; IV Intake: 500ml vc Disposition: 05/03/19 17:01 Discharged to Home. Impression: Urinary tract infection, site not specified. - Condition is Stable. - Discharge Instructions: Urinary Tract Infection, Adult. - Prescriptions for Cipro 500 mg Oral Tablet - take 1 tablet by ORAL route every 12 hours for 10 days; 20 tablet. - Medication Reconciliation Form, Thank You Letter, Antibiotic Education, Prescription Opioid Use form. - Follow up: Private Physician; When: 2 - 3 days; Reason: Recheck today's complaints. - Problem is new. - Symptoms have improved. Addendum: 05/06/2019 07:32 Co-signature as Attending Physician, Calderon Kline MD I agree with the assessment and c reeves plan of care. Signatures: Dispatcher [employer] Calderon Dubon MD MD cha Calderon, Audri, RN RN aa5 Calderon uGy PA PA Barb Brink RN RN vc Corrections: (The following items were deleted from the chart) 05/02 15:29 15:29 Normal except: CL 108. cp cp 17:13 17:01 05/03/2019 17:01 Discharged to Home. Impression: Urinary tract infection, site vc not specified. Condition is Stable. Forms are Medication Reconciliation Form, Thank You Letter, Antibiotic Education, Prescription Opioid Use. Follow up: Private Physician; When: 2 - 3 days; Reason: Recheck today's complaints. Problem is new. Symptoms have improved. cp
[2019-05-03 17:43] VITALS: BP 145/74; TEMP 98.4; O2SAT 98
--- NOTE | 2019-05-04 07:38 | EKG ---
Test Date: 2019-05-03 Test Time: 14:05:06 Pmo Manager: LARA MEASUREMENT RESULTS: Intervals: Rate: 63 WV: 118 QRSD: 82 QT: 438 QTc: 448 [place]: P: 43 WV: 118 QRS: 62 T: 67 INTERPRETIVE STATEMENTS: Sinus rhythm with premature supraventricular complexes Abnormal ECG Compared to ECG 07/01/2018 14:49:44 Atrial premature complex(es) now present Electronically Signed On 05-04-19 07:37:25 MOLD BURNER by Se Malik
== END 2019-05-03 17:13 | disposition home or self-care (01) ==
LOC: ER 12:03
DX: N39.0 Urinary tract infection, site not specified (principal)
CPT/HCPCS: 96361; 93005; 87040 ×2; 87088; 85025; 87086; 80048; 36415; 83735; 85610; 80076; 83605; 87077; 87186; 84484; 84145; 83880; 87804 ×2; 71045; 96374; 99284; J0696; J7030; J7040; 81003; 81015

== ENCOUNTER 2019-10-27 12:43 | Inpatient (IN) | payer OTHER ==
[2019-10-27] MEDS ORDERED: NA CHLORIDE 0.9% 2,000 ML ONE (13:27)
[2019-10-27 13:35] LABS: Absolute Lymphocytes (CBC) 0.4 K/uL (0.7-4.9); Basophils % 0.1 % (0-1.3); Hematocrit 36.4 % (39.6-49.0); Lymphocytes % 4.2 % (15.3-44.8); MPV 8.9 fL (7.6-11.3); RBC Red Blood Cell Count 3.81 M/uL (4.33-5.43)
[2019-10-27] MEDS ORDERED: VANCOMYCIN 1 GM/VIAL ONE (13:37)
[2019-10-27] MEDS ORDERED: NA CHLORIDE 0.9% 250 ML ONE (13:37)
[2019-10-27 13:38] LABS: Protime INR 1.42
[2019-10-27] MEDS ORDERED: PIPER/TAZO/NS 3.375gm 3.375 GM/100 ML BAG ONE (13:38)
[2019-10-27 13:54] LABS: ALT/SGPT 54 U/L (12-78); AST/SGOT 52 U/L (15-37); Albumin 1.9 g/dL (3.4-5.0); Alkaline Phosphatase 60 U/L (45-117); Amylase 9 U/L (25-115); BUN Blood Urea Nitrogen 34 mg/dL (7-18); Bicarbonate 26 mmol/L (21-32); Bilirubin Direct 0.4 mg/dL (0-0.2); Bilirubin Total 0.7 mg/dL (0.2-1.0); CKMB Creatine Kinase MB < 1.0 ng/mL (0.3-3.6); Creatine Phosphokinase 103 U/L (39-308); Glucose Level 152 mg/dL (74-106); Lipase 28 U/L (73-393); Potassium 3.3 mmol/L (3.5-5.1); Protein, Total 6.5 g/dL (6.4-8.2); Sodium Level 149 mmol/L (136-145); Troponin (Emerg Dept Use Only) < 0.02 ng/mL (0.0-0.045)
[2019-10-27 14:06] LABS: Arterial Blood Carboxyhemoglob 1.3 % (0-1.5); Blood Gas Oxyhemoglobin 67.7 % (94-97); Blood O2 Saturation 69.1 % (92-98.5)
[2019-10-27 14:29] LABS: Platelet Estimate ADEQ
--- NOTE | 2019-10-27 14:29 | RAD REPORT ---
EXAM DESCRIPTION: Nimesh Single View10/27/2019 2:09 pm CLINICAL HISTORY: Sepsis COMPARISON: April 2019 FINDINGS: Moderate patchy right lung opacities Mild reticulonodular opacities left lung The heart is normal size IMPRESSION: Bilateral pulmonary opacities consistent with pneumonia
[2019-10-27 14:30] LABS: Blood Morphology Comment NOT SEEN (NOT SEEN); Dohle Bodies NOTED
--- NOTE | 2019-10-27 14:36 | ER ---
Nurse's Notes [facility] Name: Koby Gilman Age: 74 yrs Sex: Male : 1945 Arrival Date: 10/27/2019 Time: 12:46 Bed 3 Private MD: Diagnosis: Pneumonia due to other specified bacteria;Other sepsis;Respiratory failure, unspecified with hypoxia Presentation: 10/26 12:49 Chief complaint: Patient's son or daughter states: congestion, fever Tmax 102, dyspnea sv and unable to spit up his phlegm because of his dementia started last night. No medication given for fever. Coronavirus screen: Client denies travel out of the [place] in the last 14 days. congestion, cough unrelated to allergies, difficulty breathing, Client presents with at least one sign or symptom that may indicate coronavirus-19. Standard/surgical mask placed on the client. Provider contacted for isolation considerations. Ebola Screen: No symptoms or risks identified at this time. Risk Assessment: Do you want to hurt yourself or someone else? Patient reports no desire to harm self or others. Onset of symptoms was October 26, 2019. 12:49 Method Of Arrival: Wheelchair sv 12:49 Acuity: EDWAR 1 sv 12:49 Initial Sepsis Screen: Does the patient meet any 2 criteria? RR > 20 per min. HR > 90 sv bpm. Yes Does the patient have a suspected source of infection? Yes: Productive cough/pneumonia. Triage Assessment: 12:49 General: Appears distressed, ill, slender, malnourished, Behavior is flat, sv uncooperative. General: Reports fever for 12-24 hours, feeling ill for 12-24 hours. Neuro: Level of Consciousness is confused, obtunded, Oriented to none Weakness in bilateral arm(s) leg(s). Respiratory: Respiratory effort is shallow, weak, Respiratory pattern is tachypnea. Derm: Skin is pale. Historical: - Allergies: 12:51 NKA; sv - PMHx: 12:51 acid reflux; Alzheimers; Dementia; sv - Immunization history:: Adult Immunizations up to date. - Social history:: Smoking status: Patient denies any tobacco usage or history of. Screenin:31 Abuse screen: Denies threats or abuse. Denies injuries from another. Nutritional hb screening: No deficits noted. Tuberculosis screening: No symptoms or risk factors identified. Fall Risk Total Larose Fall Scale indicates High Risk Score (45 or more points). Fall prevention measures have been instituted. Side Rails Up X 2 Frequent Obs/Assessments Occuring As available patient and family educated on Fall Prevention Program and Strategies. Assessment: 12:49 Reassessment: Pt placed on 100% NRB. O2 sat up to 80%. sv 13:04 Reassessment: Calderon OROSCO at bedside. sv 13:09 Reassessment: Shi ZENG at the bedside. sv 13:12 Reassessment: Code sepsis called. Dr. Mcfarlane at bedside assessing patient and ss discussing plan of care and code status with and daughter. 13:27 General: Appears distressed, Behavior is quiet. Pain: Denies pain. Neuro: No deficits ss noted. Neuro: Level of Consciousness is obtunded, Oriented to none Speech non verbal. patient has dementia. Cardiovascular: No deficits noted. Capillary refill is > 3 seconds JVD is absent Pulses are 2+ in right radial artery and left radial artery. Respiratory: Airway is patent Trachea midline Respiratory effort is labored, Respiratory pattern is hyperventilation Sputum is thick, yellow Breath sounds are diminished bilaterally. 14:30 Reassessment: No changes from previously documented assessment. Patient and/or family ll1 updated on plan of care and expected duration. Pain level reassessed. Patient is alert, oriented x 3, equal unlabored respirations, skin warm/dry/pink. 15:30 Reassessment: Patient and/or family updated on plan of care and expected duration. Pain ll1 level reassessed. Patient is alert, oriented x 3, equal unlabored respirations, skin warm/dry/pink. 16:30 Reassessment: Patient and/or family updated on plan of care and expected duration. Pain ll1 level reassessed. Patient is alert, oriented x 3, equal unlabored respirations, skin warm/dry/pink. Vital Signs: 12:49 BP 86 / 47; Pulse 120; Resp 40; Pulse Ox 75% on R/A; sv 13:15 Weight 68.04 kg; ss 13:30 BP 91 / 45; Pulse 98; Resp 38; Pulse Ox 91% on BiPAP; ll1 14:31 BP 106 / 64; Pulse 104; Resp 34; Pulse Ox 97% on CPAP; ll1 17:03 BP 108 / 60; Pulse 90; Resp 32; Temp 97.7; Pulse Ox 95% on 50% CPAP; Pain 0/10; ll1 ED Course: 12:46 Patient arrived in ED. mr 12:49 Arm band placed on. sv 12:50 Triage completed. sv 13:13 Calderon Guy PA is PHCP. cp 13:13 Kellie Mcfarlane MD is Attending Physician. cp 13:15 Inserted saline lock: 20 gauge in left forearm, using aseptic technique. Blood ss collected. 13:15 First set of blood cultures drawn. hb 13:31 Patient has correct armband on for positive identification. Placed in gown. Bed in low hb position. Call light in reach. Side rails up X2. monitoring manager on. Pulse ox on. NIBP on. 13:32 Second set of blood cultures drawn. hb 14:08 Chest Single View XRAY In Process Unspecified. EDMS 14:31 Sharad Martinez DO is Hospitalizing Provider. cp 14:33 Inserted saline lock: 20 gauge in right forearm, using aseptic technique. Blood ss collected. 14:58 Sarah Huertas, MARIANN is Primary Nurse. ll1 17:09 EKG done, by ED staff, reviewed by Calderon OROSCO. dh3 17:18 No provider procedures requiring assistance completed. Patient admitted, IV remains in ll1 place. Administered Medications: 13:16 CANCELLED (Physician Discretion): Zosyn 3.375 grams IVPB once over 60 mins; (mix in NS cp 100 mL) 13:24 Drug: NS 0.9% (30 ml/kg) 30 ml/kg Route: IV; Rate: bolus; Site: left antecubital; hb 17:12 Follow up: Response: No adverse reaction; RASS: Drowsy (-1); IV Status: Completed ll1 infusion; IV Intake: 2000ml 13:33 Drug: vancoMYCIN 1 grams Route: IVPB; Infused Over: 2 hrs; Site: left antecubital; hb 17:11 Follow up: Response: No adverse reaction; RASS: Drowsy (-1); IV Status: Completed ll1 infusion; IV Intake: 250ml 13:40 Drug: Zosyn 3.375 grams Route: IVPB; Infused Over: 60 mins; Site: right forearm; ss 17:10 Follow up: Response: No adverse reaction; RASS: Drowsy (-1); IV Status: Completed ll1 infusion; IV Intake: 100ml 14:42 Drug: Decadron - Dexamethasone 6 mg Route: IVP; Site: left forearm; ll1 17:11 Follow up: Response: No adverse reaction; RASS: Drowsy (-1) ll1 Intake: 17:10 IV: 100ml; Total: 100ml. ll1 17:11 IV: 250ml; Total: 350ml. ll1 17:12 IV: 2000ml; Total: 2350ml. ll1 Outcome: 14:36 Decision to Hospitalize by Provider. cp 17:18 Admitted to Med/surg accompanied by tech, room 222, with chart, Report called to Latanya 1 MARIANN Gustafson on 04 15:18 Condition: stable 17:18 Instructed on the need for admit. 17:54 Patient left the ED. 1 Signatures: Dispatcher [employer] EDMS Ni Pradhan RN RN Arlet Harding Shelby, RN RN ss Calderon Guy PA PA Melanie Mancera RN RN Pili Castle [facility] Sarah Huertas RN RN 1 Corrections: (The following items were deleted from the chart) 12:56 12:49 Acuity: EDWAR 3 sv sv 13:04 12:49 Acuity: EDWAR 2 sv sv
--- NOTE | 2019-10-27 14:36 | EDPHYS ---
Physician Documentation [facility] Name: Koby Gilman Age: 74 yrs Sex: Male : 1945 Arrival Date: 10/27/2019 Time: 12:46 Bed 3 Private MD: ED Physician Kellie Mcfarlane HPI: 10/26 13:30 This 74 yrs old Male presents to ER via Wheelchair with complaints of cp Congestion, Decreased Appetite, Breathing Difficulty. 13:30 The patient presents with decreased responsiveness. cp 13:30 Onset: The symptoms/episode began/occurred yesterday. Possible causes: pneumonia. cp Associated signs and symptoms: Pertinent positives: chest congestion, fever, decreased appetite, Pertinent negatives: diarrhea, vomiting. Current symptoms: In the emergency department the patient's symptoms are unchanged from the initial presentation, despite home interventions. Patient's baseline: Neuro: orientated to person, Motor: no deficits, Ambulation: walks with assist only. Historical: - Allergies: 12:51 NKA; sv - PMHx: 12:51 acid reflux; Alzheimers; Dementia; sv - Immunization history:: Adult Immunizations up to date. - Social history:: Smoking status: Patient denies any tobacco usage or history of. ROS: 13:35 Constitutional: Positive for poor PO intake. cp 13:35 Cardiovascular: Negative for chest pain. cp 13:35 Respiratory: Positive for cough, "sounds productive". 13:35 Abdomen/GI: Negative for abdominal pain, vomiting, diarrhea. 13:35 Neuro: Positive for altered mental status. 13:35 All other systems are negative. Exam: 13:45 Constitutional: The patient appears awake, non-diaphoretic, well developed, frail, in cp obvious distress, obviously ill. 13:45 Head/Face: Normocephalic, atraumatic. cp 13:45 Eyes: Periorbital structures: appear normal, Pupils: equal, round, and reactive to light and accomodation, Conjunctiva: normal, no exudate, no injection, Sclera: no appreciated abnormality, Lids and lashes: appear normal, bilaterally. 13:45 ENT: External ear(s): are unremarkable, Nose: is normal, Mouth: Lips: moist, Oral mucosa: moist, Posterior pharynx: Airway: no evidence of obstruction, patent. 13:45 Chest/axilla: Inspection: normal, Palpation: is normal, no crepitus, no tenderness. 13:45 Cardiovascular: Rate: tachycardic, Rhythm: regular, Edema: is not appreciated, JVD: is not appreciated. 13:45 Respiratory: severe repiratory distress is noted, Respirations: shallow respirations, that is severe, Breath sounds: decreased breath sounds, that are severe, throughout. 13:45 Abdomen/GI: Inspection: abdomen appears normal, Bowel sounds: active, all quadrants, Palpation: abdomen is soft and non-tender, in all quadrants. 13:45 Skin: cellulitis, is not appreciated, no rash present. 13:45 Neuro: Orientation: Not oriented to person, place, situation, Mentation: responsive to pain. 17:15 ECG was reviewed by the Attending Physician. Vital Signs: 12:49 BP 86 / 47; Pulse 120; Resp 40; Pulse Ox 75% on R/A; sv 13:15 Weight 68.04 kg; ss 13:30 BP 91 / 45; Pulse 98; Resp 38; Pulse Ox 91% on BiPAP; ll1 14:31 BP 106 / 64; Pulse 104; Resp 34; Pulse Ox 97% on CPAP; ll1 17:03 BP 108 / 60; Pulse 90; Resp 32; Temp 97.7; Pulse Ox 95% on 50% CPAP; Pain 0/10; ll1 MDM: 13:14 Patient medically screened. cp 13:30 Differential Diagnosis: meningitis, pneumonia, sepsis, volume depletion. 14:35 Data reviewed: vital signs, nurses notes, lab test result(s), radiologic studies, plain cp films. Test interpretation: by ED physician or midlevel provider: chest xray shows bilateral infiltrates. Response to treatment: the patient's symptoms have markedly improved after treatment, and as a result, I will admit patient. 14:35 Physician consultation: Baldomero Mitchell MD was called at 14:35, was contacted at 14:35, regarding admission, to the medical/surgical unit. patient's condition, and will see patient in ED, shortly. 14:45 Post IV fluid administration reassessment for Sepsis: Sepsis focused reassessment cp complete. Focused Assessment performed: October 27, 2019 at 14:45 Heart: Tachycardia noted. Lungs: patient on BIPAP and improved Current vital signs reviewed: Yes. Neuro: Neurological examination improved from previous exam. Cardio: Cardiovascular examination improved from previous exam. Heart rate and blood pressure have improved. Respiratory: Respiratory exam improved from previous exam. 10/26 13:13 Order name: Amylase, Serum; Complete Time: 14:30 ss 10/26 13:13 Order name: Basic Metabolic Panel; Complete Time: 14:30 ss 10/26 14:30 Interpretation: Normal except: NA 149; K 3.3; CL 115; GLUC 152; BUN 34; GFR 57; CA 8.1. cp 10/26 13:13 Order name: Blood Culture Adult (2) ss 10/26 13:13 Order name: CBC with Diff ss 10/26 13:13 Order name: Ckmb; Complete Time: 14:30 ss 10/26 13:13 Order name: CPK; Complete Time: 14:30 ss 10/26 13:13 Order name: Lactate; Complete Time: 14:30 10/26 13:13 Order name: LFT's; Complete Time: 14:30 ss 10/26 14:30 Interpretation: Normal except: AST 52; BILID 0.4; ALB 1.9; GLOB 4.6; A/G 0.4. 10/26 13:13 Order name: Lipase; Complete Time: 14:30 ss 10/26 13:13 Order name: Procalcitonin; Complete Time: 14:30 10/26 14:30 Interpretation: Abnormal: Procalcitonin 0.75. 10/26 13:13 Order name: Protime (+inr); Complete Time: 14:30 10/26 13:13 Order name: Ptt, Activated; Complete Time: 14:30 10/26 13:13 Order name: Troponin (emerg Dept Use Only); Complete Time: 14:30 10/26 13:13 Order name: Urine Microscopic Only 10/26 13:13 Order name: Chest Single View XRAY; Complete Time: 14:30 ss 10/26 14:31 Interpretation: Report review. 10/26 13:16 Order name: Flu; Complete Time: 14:30 cp 10/26 13:36 Order name: Manual Differential EDMS 10/26 14:06 Order name: ABG Arterial Blood Gas; Complete Time: 14:30 EDMS 10/26 14:55 Order name: T4 Free EDMS 10/26 14:55 Order name: Thyroid Stimulating Hormone EDIL 10/26 14:55 Order name: C-Reactive Protein [facility] 10/26 15:53 Order name: SARS-COV-2 RT PCR [facility] 10/26 17:05 Order name: Urine Dipstick--Ancillary (enter results) 10/26 17:08 Order name: Lactate Sepsis 2 HR Follow-up EDIL 10/26 17:38 Order name: Urine Dipstick-Ancillary [facility] 10/26 13:13 Order name: Accucheck; Complete Time: 13:25 ss 10/26 13:13 Order name: Cardiac monitoring; Complete Time: 17:36 ss 10/26 13:13 Order name: EKG - Nurse/Tech; Complete Time: 17:36 ss 10/26 13:13 Order name: IV Saline Lock - Large Bore; Complete Time: 13:25 ss 10/26 13:13 Order name: Labs collected and sent; Complete Time: 13:25 ss 10/26 13:13 Order name: O2 Per Protocol; Complete Time: 13:25 ss 10/26 13:13 Order name: O2 Sat Monitoring; Complete Time: 13:25 ss 10/26 13:13 Order name: Urine Dipstick-Ancillary (obtain specimen); Complete Time: 17:12 ss 10/26 13:16 Order name: Droplet/Contact Precautions; Complete Time: 13:25 cp 10/26 14:55 Order name: NPO [facility] 10/26 14:57 Order name: CONS Pharmacy Consult EDIL EC:15 Rate is 80 beats/min. Rhythm is regular. [place] interval is normal. QRS interval is normal. cp QT interval is normal. Interpreted by me. Reviewed by me. Administered Medications: 13:16 CANCELLED (Physician Discretion): Zosyn 3.375 grams IVPB once over 60 mins; (mix in NS cp 100 mL) 13:24 Drug: NS 0.9% (30 ml/kg) 30 ml/kg Route: IV; Rate: bolus; Site: left antecubital; hb 17:12 Follow up: Response: No adverse reaction; RASS: Drowsy (-1); IV Status: Completed ll1 infusion; IV Intake: 2000ml 13:33 Drug: vancoMYCIN 1 grams Route: IVPB; Infused Over: 2 hrs; Site: left antecubital; hb 17:11 Follow up: Response: No adverse reaction; RASS: Drowsy (-1); IV Status: Completed ll1 infusion; IV Intake: 250ml 13:40 Drug: Zosyn 3.375 grams Route: IVPB; Infused Over: 60 mins; Site: right forearm; ss 17:10 Follow up: Response: No adverse reaction; RASS: Drowsy (-1); IV Status: Completed ll1 infusion; IV Intake: 100ml 14:42 Drug: Decadron - Dexamethasone 6 mg Route: IVP; Site: left forearm; ll1 17:11 Follow up: Response: No adverse reaction; RASS: Drowsy (-1) ll1 Disposition: 15:00 Chart complete. cp 15:00 Critical Care:. cp Disposition: 10/27/19 14:36 Hospitalization ordered by Sharad Martinez for Inpatient Admission. Preliminary diagnosis are Pneumonia due to other specified bacteria, Other sepsis, Respiratory failure, unspecified with hypoxia. - Bed requested for Telemetry/MedSurg (observation). - Status is Inpatient Admission. ll1 - Condition is Critical. - Problem is new. - Symptoms have improved. Critical care time excluding procedures: 15:00 Critical care time: Bedside Care: 10 minutes, Consultation: 20 minutes, Family cp Intervention: 10 minutes. Total time: 40 minutes Addendum: 11/03/2019 09:53 Co-signature as Attending Physician, Kellie Mcfarlane MD. m a2 Signatures: Dispatcher [employer] [facility] Ni Pradhan RN RN sv Smirch, Shelby, RN RN ss Page, Corey, PA PA Melanie Mancera RN RN Kellie Mcfarlane MD MD fl2 Marlene Peña Lynsay, RN RN ll1 Corrections: (The following items were deleted from the chart) 10/26 13:16 13:16 Zosyn 3.375 grams IVPB once over 60 mins; (mix in NS 100 mL) ordered. cp cp 14:30 14:30 Normal except: NA 149; K 3.3; CL 115; GLUC 152; BUN 34; GFR 57. cp cp 14:50 13:17 CORONAVIRUS+MR.LAB.BRZ ordered. EDIL EDIL 17:03 14:36 Hospitalization Ordered by Sharad Martinez DO for Inpatient Admission. Preliminary eb diagnosis is Pneumonia due to other specified bacteria; Other sepsis; Respiratory failure, unspecified with hypoxia. Bed requested for Telemetry/MedSurg (observation). Status is Inpatient Admission. Condition is Critical. Problem is new. Symptoms have improved. cp 17:54 17:03 10/27/2019 14:36 Hospitalization Ordered by Sharad Martinez DO for Inpatient ll1 Admission. Preliminary diagnosis is Pneumonia due to other specified bacteria; Other sepsis; Respiratory failure, unspecified with hypoxia. Bed requested for Telemetry/MedSurg (observation). Status is Inpatient Admission. Condition is Critical. Problem is new. Symptoms have improved. eb 20:46 20:43 Data reviewed: vital signs, nurses notes, lab test result(s), radiologic studies, cp plain films, cp 20:46 20:43 Test interpretation: by ED physician or midlevel provider: chest xray shows cp bilateral infiltrates, cp 20:46 20:43 Response to treatment: the patient's symptoms have markedly improved after cp treatment, and as a result, I will admit patient, cp 10/27 16:05 10/26 14:45 Chart complete. cp cp
[2019-10-27] MEDS ORDERED: dexAMETHasone 10 MG/ML VIAL ONE (14:47)
[2019-10-27] MEDS ORDERED: Pharmacy Consult 1 EA XX PRN (14:55)
[2019-10-27] MEDS: INSULIN -REGULAR HUMAN 50 UNIT/0.5 ML ML SQ SCH ×2 (16:30→20:22)
--- NOTE | 2019-10-27 16:35 | P.HP ---
Certification for Inpatient Patient admitted to: Inpatient With expected LOS: >2 Midnights Practitioner: I am a practitioner with admitting privileges, knowledge of patient current condition, hospital course, and medical plan of care. Services: Services provided to patient in accordance with Admission requirements found in Title 42 Section 412.3 of the Code of Federal Regulations Patient History Date of Service: 10/27/19 (Hospitalist) Reason for admission: Fever History of Present Illness: Patient is 74 years of age with end-stage dementia present at the bedside he became acutely worse baseline functioning is very poor patient is not able to communicate patient has been fed at taken diet. This found to be hypoxic hypotensive and was admitted Allergies No Known Drug Allergies Allergy (Verified 08/25/14 15:58) Unknown No Known Allergies Allergy (Uncoded 05/15/15 03:30) Unknown Home Medications: Donepezil [Aricept*] 10 mg PO BID 08/25/14 Memantine HCl [Namenda Xr] 28 mg PO DAILY 05/15/15 Omeprazole [Prilosec] 40 mg PO DAILY 05/15/15 Topiramate [Topamax*] 25 mg PO BID 05/15/15 - Past Medical/Surgical History Diabetic: No -: hyperlipidemia -: dementia -: acid reflex -: left side carotid sx - Social History Alcohol use: No CD- Drugs: No Caffeine use: No Review of Systems is unable to be obtained Physical Examination - Vital Signs Blood Pressure: 86/47 Pulse: 120 Respirations: 40 Pulse Ox (%): 75 - Physical Exam General: Unresponsive Neck: Supple Respiratory: Clear to auscultation bilaterally, Diminished Cardiovascular: No edema, Regular rate/rhythm Gastrointestinal: Normal bowel sounds, Soft and benign Musculoskeletal: No clubbing Integumentary: No rashes Neurological: Other (Patient not cooperative) - Studies Laboratory Data (last 24 hrs) 10/27/19 13:19: PT 16.6 H, INR 1.42, APTT 28.0 10/27/19 13:19: Sodium 149 H, Potassium 3.3 L, BUN 34 H, Creatinine 1.24, Glucose 152 H, Total Bilirubin 0.7, AST 52 H, ALT 54, Alkaline Phosphatase 60, Amylase 9 L, Lipase 28 L 10/27/19 13:15: WBC 9.8, Hgb 12.1 L, Hct 36.4 L, Plt Count 185 Microbiology Data (last 24 hrs): 10/27/19 13:26 Nasopharnyx Influenza Type A Antigen Screen - Final 10/27/19 13:26 Nasopharnyx Influenza Type B Antigen Screen - Final Assessment and Plan - Problems (Diagnosis) (1) Septic shock Current Visit: Yes Status: Acute Plan: Patient is 74 years of age with end-stage dementia admitted with acute onset of fever bilateral infiltrates apparently there has been no exposure to canela virus he lives with his only patient was hypotensive hypoxic white count is normal hypernatremia mild renal failure elevated CRP chest x-ray shows bilateral infiltrate plan admit to the hospital discuss with the not to intubated do CPR continue with antibiotic continue with antibiotics vancomycin and levofloxacin patient hypoxic hypercapnic - Advance Directives Does patient have a Living Will: Yes Does patient have a Durable POA for Healthcare: Yes - Code Status/Comfort Care Code Status Assessed: Yes Code Status: Do Not Attempt Resuscitat (Discussed with )
[2019-10-27 17:24] LABS: Thyroid Stimulating Hormone 3.05 uIU/mL (0.360-3.740)
[2019-10-27 17:38] LABS: Urine Blood NEGATIVE (NEG); Urine Glucose NEGATIVE (NEG); Urine Protein 1+ (NEG)
[2019-10-27] MEDS: NA CHLORIDE 0.9% 1,000 ML IV SCH (18:12)
[2019-10-27] MEDS: METHYLPREDNISOLONE 125 MG INJ IV SCH ×2 (18:15→23:35)
[2019-10-27 18:27] LABS: Urine Amorphous Sediment 1+ /HPF (NONE SEEN); Urine Bacteria <20 /HPF (NONE SEEN); Urine Culture Reflex Order NOT NEEDED; Urine Mucus 1+ /HPF (NONE SEEN); Urine RBC <5 /HPF (NONE SEEN)
[2019-10-27] MEDS: Levofloxacin500mg IV 500 MG/100 ML BAG IV SCH (20:17)
[2019-10-27] MEDS: KCL 20 MEQ/100 mL IVPB 20 MEQ/100 ML BAG IV SCH ×2 (20:18→22:49)
[2019-10-28] MEDS: METHYLPREDNISOLONE 125 MG INJ IV SCH ×3 (05:04→16:44)
[2019-10-28] MEDS: NA CHLORIDE 0.9% 1,000 ML IV SCH (05:07)
[2019-10-28 06:01] LABS: Absolute Lymphocytes (CBC) 0.8 K/uL (0.7-4.9); Basophils % 0.1 % (0-1.3); Hematocrit 31.7 % (39.6-49.0); Lymphocytes % 10.1 % (15.3-44.8); MPV 9.3 fL (7.6-11.3); RBC Red Blood Cell Count 3.28 M/uL (4.33-5.43)
[2019-10-28 06:11] LABS: BUN Blood Urea Nitrogen 41 mg/dL (7-18); Bicarbonate 25 mmol/L (21-32); Glucose Level 133 mg/dL (74-106); Potassium 4.4 mmol/L (3.5-5.1); Sodium Level 151 mmol/L (136-145)
[2019-10-28] MEDS: INSULIN -REGULAR HUMAN 50 UNIT/0.5 ML ML SQ SCH ×4 (07:30→22:16)
[2019-10-28] MEDS: DIVALPROEX NA 125 MG CAP PO SCH ×2 (09:00→20:32)
[2019-10-28 09:49] LABS: Magnesium 2.6 mg/dL (1.8-2.4)
[2019-10-28] MEDS: VANCOMYCIN 1.25 GM in NA CHLORIDE 0.9% 250 ML IVPB SCH (11:17)
--- NOTE | 2019-10-28 11:49 | RAD REPORT ---
EXAM DESCRIPTION: RAD - Barium Swallow Modified - 10/28/2019 11:32 am CLINICAL HISTORY: Dysphagia, dementia, pneumonia FINDINGS: laryngeal pentration : not cleared aspiration: no cough with thin, nectar , pharyngeal residue pharyngeal residue: vallecular,pyfriform, posterior wall -with all consistencies, mod-sev with nectar thick other : 2 sec swallow delay fluoro time 7.55 min 17 fluoroscopic spot images obtained
[2019-10-28] MEDS: NACHLORIDE 0.45% 1,000 ML IV SCH ×2 (12:18→19:00)
[2019-10-28] MEDS ORDERED: VANCOMYCIN 1.25 GM in NA CHLORIDE 0.9% 250 ML IVPB SCH (13:00)
--- NOTE | 2019-10-28 14:30 | P.PN ---
Subjective Date of Service: 10/28/19 Chief Complaint: Fever Subjective: Demented, Other (currently on BIPAP) Physical Examination - Vital Signs Temperature: 97.4 F Blood Pressure: 128/61 Pulse: 62 Respirations: 16 Pulse Ox (%): 96 - Physical Exam General: Alert, Demented HEENT: Atraumatic Neck: Supple Respiratory: Crackles/rales Cardiovascular: Normal pulses, Regular rate/rhythm Neurological: Dementia (severe) - Studies Microbiology Data (last 24 hrs): 10/27/19 13:26 Nasopharnyx Influenza Type A Antigen Screen - Final 10/27/19 13:26 Nasopharnyx Influenza Type B Antigen Screen - Final Medications List Reviewed: Yes Assessment & Plan Discharge Plan: Home Plan to discharge in: 48 Hours Physician Review Additional Text: Impression: Severe sepsis with acute respiratory failure secondary to bilateral pneumonia likely aspiration related and bacteremia, blood culture positive for gram- positive cocci Severe dementia in stage Hypernatremia likely dehydration Plan: Severe sepsis with acute respiratory failure secondary to bilateral pneumonia likely aspiration related and bacteremia, blood culture positive for gram- positive cocci: Continue IV antibiotic therapy and IV fluids. Patient currently on BiPAP. Will try to wean off. Advanced care planning address in detail with . understands patient with severe end stage dementia. Advanced directives address in detail. Patient is do not resuscitate or do not intubate. also expressed the possibility of hospice. It had been difficult to send the patient to a penitentiary due to cost. is agreeable to hospice. Will continue monitor over the next 24 hr. If no significant improvement will pursue inpatient hospice. Otherwise the patient improves will consider outpatient hospice. Advanced care plan-30 min Severe dementia end stage: Continue as above. will consult Neurology who sees the patient as an outpatient. Continue home medication. Hypernatremia likely dehydration: Continue IV fluids. Will monitor adjust appropriately. Time Spent Managing Pts Care (In Minutes): 55
[2019-10-28] MEDS: RISPERIDONE 1 MG TABLET PO SCH ×3 (16:45→22:39)
[2019-10-28] MEDS: Levofloxacin500mg IV 500 MG/100 ML BAG IV SCH (20:32)
[2019-10-28] MEDS: MIRTAZAPINE 15 MG TAB PO SCH ×2 (20:33→22:39)
--- NOTE | 2019-10-28 20:49 | CON ---
Reason: Altered mental status, dementia. History: A 74-year-old gentleman brought to the emergency department by his for worsening menta tion and decreased ability to take care of himself. Found to have bilateral bacterial pneumonia, COV ID negative, blood cultures positive x2 for gram positives. He was hypoxemic and hypotensive, felt t o have probable aspiration pneumonia. The patient has advanced dementia. He is generally nonverbal. He is generally not able to take care of himself and does not really have the capability of ca ring for him at home, although they are unable to afford long term care either. He has actually b een tapered off his anti-dementia agents as it has proven to be cost prohibitive and they are really no longer efficacious. The patient is on Risperdal as he does have a tendency to become violent and combative as well as Depakote chronically. Care with Risperdal was been continued. He is improving somewhat with regard to the pneumonia. He is off BiPAP. He is on a nasal cannula. White count is n ormal. There is a question regarding hospice care, consult was requested. Past Medical History: Dementia, reflux. Medications: Normally Risperdal, Remeron and Depakote. Allergies: NONE. Social History: Lives with his . Requires assistance with all activities of daily living. Family History: Noncontributory. Review of Systems: General: Chronically ill. Eyes: Negative. Ears, Nose, Throat: He seems to be aspirating as well. Cardiovascular: Negative. Pulmonary: Pneumonia. GI: Negative. : Negative. Musculoskeletal: Arthralgias. Neurologic: As noted. Psychiatric: As noted. Endocrine: Negative. Hematologic: Negative. Physical Examination: Vital Signs: 97.4, 62, respirations 20, pulse ox 94% on nasal cannula. General: He is awake, but nonverbal with moderate masking and decreased blink rate. He thinks the r ed light to the pulse oximeter is food and he keeps trying to eat the pulse oximeter monitor, but bli nks to threat. The patient has generalized bradykinesia and rigidity throughout, which has been a lo ng-standing feature. Strength is 4+. Reflexes are 1/4. Toes are downgoing. Sensation is intact to pain. Gait and cerebellar not tested. Pertinent Laboratory Data: Chest x-ray demonstrated bilateral infiltrates consistent with pneumonia. Modified barium swallow demonstrates laryngeal penetration without clearing. COVID is negative. W amanda count 8.1, hemoglobin 10.7, platelets 147. Sodium 151, creatinine 0.79. CRP 252. Procalcitoni n 0.75. AST 52, an ALT 54. Impression: Alzheimer disease, advanced to sepsis secondary to pneumonia, altered mental status. Plan: I think that general supportive care is quite reasonable. is quite clear. She would not want a feeding tube. Hospice may indeed be the next appropriate step. I reviewed the hospice situa tion with the patient's in detail. Thank you for the consult. We will continue to follow with you. JOSE Voice ID: [id number] Report ID: [id number]
[2019-10-29] MEDS: METHYLPREDNISOLONE 125 MG INJ IV SCH ×4 (00:17→17:21)
[2019-10-29] MEDS: NACHLORIDE 0.45% 1,000 ML IV SCH ×5 (00:17→21:29)
[2019-10-29] MEDS: VANCOMYCIN 1.25 GM in NA CHLORIDE 0.9% 250 ML IVPB SCH ×2 (03:18→22:53)
[2019-10-29 06:02] LABS: Absolute Lymphocytes (CBC) 1.1 K/uL (0.7-4.9); Basophils % 0.1 % (0-1.3); Hematocrit 32.7 % (39.6-49.0); Lymphocytes % 8.9 % (15.3-44.8); MPV 9.6 fL (7.6-11.3)
[2019-10-29 06:10] LABS: BUN Blood Urea Nitrogen 41 mg/dL (7-18); Bicarbonate 25 mmol/L (21-32); Glucose Level 148 mg/dL (74-106); Magnesium 2.6 mg/dL (1.8-2.4); Sodium Level 149 mmol/L (136-145)
[2019-10-29] MEDS: INSULIN -REGULAR HUMAN 50 UNIT/0.5 ML ML SQ SCH ×4 (07:30→21:31)
[2019-10-29] MEDS: RISPERIDONE 1 MG TABLET PO SCH ×4 (08:00→21:29)
[2019-10-29] MEDS: DIVALPROEX NA 125 MG CAP PO SCH ×2 (09:00→21:00)
--- NOTE | 2019-10-29 12:49 | P.PN ---
Subjective Date of Service: 10/29/19 Chief Complaint: Fever Subjective: Improving Physical Examination - Vital Signs Temperature: 97.3 F Blood Pressure: 128/62 Pulse: 50 Respirations: 18 Pulse Ox (%): 95 - Physical Exam General: Demented (Severe) HEENT: Atraumatic Neck: Supple Respiratory: Crackles/rales, Other (Patient on nasal cannula) Cardiovascular: Normal pulses, Regular rate/rhythm Neurological: Normal strength at 5/5 x4 extr, Normal tone, Dementia (Severe dementia) - Studies Medications List Reviewed: Yes Assessment & Plan Discharge Plan: Home (With hospice) Plan to discharge in: 24 Hours Physician Review Additional Text: Impression: Severe sepsis with acute respiratory failure secondary to bilateral pneumonia likely aspiration related and bacteremia, blood culture positive for gram-positive cocci Severe dementia in stage Hypernatremia likely dehydration Plan: Severe sepsis with acute respiratory failure secondary to bilateral pneumonia likely aspiration related and bacteremia, blood culture positive for gram- positive cocci: Continue IV antibiotic therapy and IV fluids. Patient now on nasal cannula. Continue to wean off. Await blood culture results. Patient remains do not resuscitate and [id number]. Plan of care address with . Possible discharge tomorrow with hospice as an outpatient. Awaiting culture results. Will need to determine if patient will require oxygen at discharge. Severe dementia end stage: Continue as above. will consult Neurology who sees the patient as an outpatient. Continue home medication. Hypernatremia likely dehydration: Continue IV fluids. Will monitor adjust appropriately. Time Spent Managing Pts Care (In Minutes): 55
[2019-10-29 16:55] VITALS: BMI 22.6
[2019-10-29] MEDS: Levofloxacin500mg IV 500 MG/100 ML BAG IV SCH (21:28)
[2019-10-29] MEDS: MIRTAZAPINE 15 MG TAB PO SCH (21:29)
[2019-10-30] MEDS: METHYLPREDNISOLONE 125 MG INJ IV SCH ×4 (00:16→18:00)
[2019-10-30] MEDS: NACHLORIDE 0.45% 1,000 ML IV SCH ×3 (01:00→21:58)
[2019-10-30 06:06] LABS: Basophils % 0.2 % (0-1.3); Hematocrit 32.2 % (39.6-49.0); MPV 9.5 fL (7.6-11.3); RBC Red Blood Cell Count 3.38 M/uL (4.33-5.43)
[2019-10-30 06:38] LABS: BUN Blood Urea Nitrogen 34 mg/dL (7-18); Bicarbonate 24 mmol/L (21-32); Glucose Level 156 mg/dL (74-106); Magnesium 2.5 mg/dL (1.8-2.4); Potassium 4.4 mmol/L (3.5-5.1); Sodium Level 151 mmol/L (136-145)
[2019-10-30] MEDS: INSULIN -REGULAR HUMAN 50 UNIT/0.5 ML ML SQ SCH ×4 (07:30→21:00)
[2019-10-30] MEDS: RISPERIDONE 1 MG TABLET PO SCH ×3 (08:28→21:59)
[2019-10-30] MEDS: DIVALPROEX NA 125 MG CAP PO SCH (08:34)
[2019-10-30] MEDS: VANCOMYCIN 1.25 GM in NA CHLORIDE 0.9% 250 ML IVPB SCH (14:44)
--- NOTE | 2019-10-30 18:20 | P.PN ---
Subjective Date of Service: 10/30/19 Chief Complaint: Fever Subjective: Demented Physical Examination - Vital Signs Temperature: 97.7 F Blood Pressure: 126/59 Pulse: 56 Respirations: 18 Pulse Ox (%): 93 - Physical Exam General: Alert, Demented HEENT: Atraumatic Neck: Supple Respiratory: Crackles/rales Cardiovascular: Normal pulses, Regular rate/rhythm Integumentary: No tenderness/swelling, No erythema, No warmth, No cyanosis Neurological: Dementia - Studies Medications List Reviewed: Yes Assessment & Plan Discharge Plan: Home Plan to discharge in: 24 Hours Physician Review Additional Text: Impression: Severe sepsis with acute respiratory failure secondary to bilateral pneumonia likely aspiration related and bacteremia, blood culture positive for gram- positive cocci Severe dementia in stage Hypernatremia likely dehydration Plan: Severe sepsis with acute respiratory failure secondary to bilateral pneumonia likely aspiration related and bacteremia, blood culture positive for gram- positive cocci: Continue IV antibiotic therapy and IV fluids. Patient now on nasal cannula. Continue to wean off. Await blood culture results. Patient remains do not resuscitate and [id number]. Plan of care address with . has arrange for hospice at discharge. Equipment to be sent to the home today. Anticipate discharge tomorrow on hospice. Severe dementia end stage: Continue as above. will consult Neurology who sees the patient as an outpatient. Continue home medication. Hypernatremia likely dehydration: Continue IV fluids. Will monitor adjust appropriately. Time Spent Managing Pts Care (In Minutes): 55
[2019-10-30] MEDS: MIRTAZAPINE 15 MG TAB PO SCH (21:58)
[2019-10-30] MEDS: Levofloxacin500mg IV 500 MG/100 ML BAG IV SCH (21:58)
[2019-10-31] MEDS: METHYLPREDNISOLONE 125 MG INJ IV SCH ×3 (00:49→12:12)
[2019-10-31 05:15] LABS: Absolute Lymphocytes (CBC) 0.8 K/uL (0.7-4.9); Basophils % 0.3 % (0-1.3); Hematocrit 34.5 % (39.6-49.0); MPV 9.6 fL (7.6-11.3); RBC Red Blood Cell Count 3.65 M/uL (4.33-5.43)
[2019-10-31 06:00] LABS: BUN Blood Urea Nitrogen 22 mg/dL (7-18); Bicarbonate 26 mmol/L (21-32); Glucose Level 144 mg/dL (74-106); Magnesium 2.3 mg/dL (1.8-2.4); Potassium 4.4 mmol/L (3.5-5.1); Sodium Level 143 mmol/L (136-145)
[2019-10-31] MEDS: NACHLORIDE 0.45% 1,000 ML IV SCH (07:00)
[2019-10-31 07:17] LABS: Platelet Estimate DECR
[2019-10-31 07:18] LABS: Blood Morphology Comment NOT SEEN (NOT SEEN)
[2019-10-31] MEDS: INSULIN -REGULAR HUMAN 50 UNIT/0.5 ML ML SQ SCH ×3 (07:30→16:30)
--- NOTE | 2019-10-31 08:54 | P.DS ---
Admission Date: 10/27/19 Discharge Date: 10/31/19 Primary Care Provider: Dr. Ramirez; Neurology-Dr. Lainez Disposition: HOSPICE-HOME Discharge Condition: GOOD Reason for Admission: Fever Consultations: Neurology-Dr. Lainez Procedures: CXR: COMPARISON: April 2019 FINDINGS: Moderate patchy right lung opacities Mild reticulonodular opacities left lung The heart is normal size IMPRESSION: Bilateral pulmonary opacities consistent with pneumonia MBS: FINDINGS: laryngeal pentration : not cleared aspiration: no cough with thin, nectar , pharyngeal residue pharyngeal residue: vallecular,pyfriform, posterior wall -with all consistencies, mod-sev with nectar thick other : 2 sec swallow delay fluoro time 7.55 min 17 fluoroscopic spot images obtained Medical Problem List: Severe sepsis with acute respiratory failure secondary to bilateral pneumonia likely aspiration related and bacteremia, blood culture positive for gram- positive cocci Severe dementia in stage Hypernatremia likely dehydration Moderate protein malnutrition Brief History of Present Illness: 74-year-old male with end-stage Alzheimer's dementia presented to the emergency room with fever. Patient found to have severe sepsis with hypoxia. Patient found to have bilateral pneumonia. Sepsis protocol initiated. Patient admitted for further evaluation and treatment. Hospital Course: Patient presented with fever. Patient with end-stage severe Alzheimer's dementia. Patient found to have severe sepsis with acute respiratory failure with hypoxia secondary to bilateral pneumonia. This was likely aspiration related. Patient was initiated on sepsis protocol. Patient found to be bacteremic. Blood cultures positive for alpha Streptococcus. During the course of his stay, electrolytes were corrected. Patient received IV fluids and antibiotic therapy. Patient has done well. COVID test negative. Due to his chronic condition, advanced care planning address in detail with the . She understands that his end-stage dementia will not improved. The has done an excellent job in taking care of the patient as this condition of dementia over time has worsened. After further discussion patient remains do not resuscitate and [id number]. Hospice was addressed. desired hospice at home. At discharge patient will continue with Augmentin 500 mg 1 pill twice daily for 10 days. Cultures pending at discharge, this can be followed as outpatient. Farrukh ng will continue with hospice at home. Patient requires oxygen at discharge. Equipment has been arranged. Further adjustment and monitoring can be done by hospice. Patient will likely continue with comfort measures after treatment. Patient with end-stage Alzheimer's dementia. Patient seen by Neurology who follows the patient well. At discharge patient may continue with his current medications-mirtazapine 30 mg at bedtime, risperidone 3 mg at bedtime, risperidone 2 mg 1 pill twice daily, and Depakote 500 mg one pill twice daily. clearly understands patient's terminal condition. Hospice now in place. Patient with moderate malnutrition related to dementia. There was some question of possible dysphagia due to suspected aspiration pneumonia. If speech evaluated the patient. No aspiration was identified. Speech recommended mechanical soft solids, ground meats and honey thickened liquids. Aspiration precaution to be in enforced and monitored. Vital Signs/Physical Exam: Temp Pulse Resp BP Pulse Ox 97.6 F 62 17 151/91 H 97 10/31/19 08:00 10/31/19 08:00 10/31/19 08:00 10/31/19 08:00 10/31/19 08:00 General: Alert, Demented (Severe dementia) HEENT: Atraumatic Neck: Supple Respiratory: Crackles/rales (Crackles to the bases) Cardiovascular: Normal pulses, Regular rate/rhythm Gastrointestinal: Normal bowel sounds, No tenderness, No masses, No rebound, No guarding Integumentary: No warmth, No cyanosis, Other (Some muscle wasting to the upper lower extremities.) Neurological: Dementia Laboratory Data at Discharge: WBC 13.0 K/uL (4.3-10.9) H D 10/31/19 04:59 Hgb 11.5 g/dL (13.6-17.9) L 10/31/19 04:59 Hct 34.5 % (39.6-49.0) L 10/31/19 04:59 Plt Count 110 K/uL (152-406) L D 10/31/19 04:59 PT 16.6 SECONDS (9.5-12.5) H 10/27/19 13:19 INR 1.42 10/27/19 13:19 APTT 28.0 SECONDS (24.3-36.9) 10/27/19 13:19 Sodium 143 mmol/L (136-145) 10/31/19 04:59 Potassium 4.4 mmol/L (3.5-5.1) 10/31/19 04:59 BUN 22 mg/dL (7-18) H 10/31/19 04:59 Creatinine 0.51 mg/dL (0.55-1.3) L 10/31/19 04:59 Glucose 144 mg/dL (74-106) H 10/31/19 04:59 Magnesium 2.3 mg/dL (1.8-2.4) 10/31/19 04:59 Total Bilirubin 0.7 mg/dL (0.2-1.0) 10/27/19 13:19 AST 52 U/L (15-37) H 10/27/19 13:19 ALT 54 U/L (12-78) 10/27/19 13:19 Alkaline Phosphatase 60 U/L (45-117) 10/27/19 13:19 Amylase 9 U/L (25-115) L 10/27/19 13:19 Lipase 28 U/L (73-393) L 10/27/19 13:19 Home Medications: Divalproex [Depakote Sprinkle*] 500 mg PO BID 10/27/19 Mirtazapine 30 mg PO BEDTIME 10/27/19 Risperidone [Risperdal] 3 mg PO BEDTIME 10/27/19 risperiDONE [Risperidone] 2 mg PO BIDWM 10/27/19 Amoxicillin/Potassium Clav [Augmentin 500-125 Tablet] 1 each PO BID #20 tablet 10/31/19 New Medications: Amoxicillin/Potassium Clav [Augmentin 500-125 Tablet] 1 each PO BID #20 tablet Patient Discharge Instructions: 1. Patient will go home with hospice in place. 2. Patient presented with fever. Patient with end-stage severe Alzheimer's dementia. Patient found to have severe sepsis with acute respiratory failure with hypoxia secondary to bilateral pneumonia. This was likely aspiration related. Patient was initiated on sepsis protocol. Patient found to be bacteremic. Blood cultures positive for alpha Streptococcus. During the course of his stay, electrolytes were corrected. Patient received IV fluids and antibiotic therapy. Patient has done well. COVID test negative. Due to his chronic condition, advanced care planning address in detail with the . She understands that his end-stage dementia will not improved. The has done an excellent job in taking care of the patient as this condition of dementia over time has worsened. After further discussion patient remains do not resuscitate and [id number]. Hospice was addressed. desired hospice at home. At discharge patient will continue with Augmentin 500 mg 1 pill twice daily for 10 days. Cultures pending at discharge, this can be followed as outpatient. Patient will continue with hospice at home. Patient requires oxygen at discharge. Equipment has been arranged. Further adjustment and monitoring can be done by hospice. Patient will likely continue with comfort measures after treatment. 3. Patient with end-stage Alzheimer's dementia. Patient seen by Neurology who follows the patient well. At discharge patient may continue with his current medications-mirtazapine 30 mg at bedtime, risperidone 3 mg at bedtime, risperidone 2 mg 1 pill twice daily, and Depakote 500 mg one pill twice daily. clearly understands patient's terminal condition. Hospice now in place. 4. Patient with moderate malnutrition related to dementia. There was some question of possible dysphagia due to suspected aspiration pneumonia. If speech evaluated the patient. No aspiration was identified. Speech recommended mechanical soft solids, ground meats and honey thickened liquids. Aspiration precaution to be in enforced and monitored. Diet: Mechanical soft Activity: Bedrest Time spent managing pt's care (in minutes): 55
[2019-10-31 08:58] VITALS: O2SAT 96
[2019-10-31] MEDS: RISPERIDONE 1 MG TABLET PO SCH ×2 (08:59→17:00)
[2019-10-31] MEDS: VANCOMYCIN 1.25 GM in NA CHLORIDE 0.9% 250 ML IVPB SCH (09:00)
[2019-10-31 12:57] VITALS: BP 107/56; TEMP 97
== END 2019-10-31 20:40 | disposition hospice, home (50) | DRG 871 ==
LOC: ER 12:43 → ERHOLD 14:52 → 2ND 17:24
PROVIDERS: ADMIT Internal Medicine Sleep Medicine; ATTEND Family Medicine
DX: A41.9 Sepsis, unspecified organism (principal); R65.21 Severe sepsis with septic shock; J96.01 Acute respiratory failure with hypoxia; J69.0 Pneumonitis due to inhalation of food and vomit; E87.0 Hyperosmolality and hypernatremia; E44.0 Moderate protein-calorie malnutrition; E78.5 Hyperlipidemia, unspecified; K21.9 Gastro-esophageal reflux disease without esophagitis; G30.9 Alzheimer's disease, unspecified; F02.80 Dementia in other diseases classified elsewhere, unspecified severity, without behavioral disturbance, psychotic disturbance, mood disturbance, and anxiety; E86.0 Dehydration; B95.5 Unspecified streptococcus as the cause of diseases classified elsewhere; Z68.22 Body mass index [BMI] 22.0-22.9, adult; Z66 Do not resuscitate; Z79.899 Other long term (current) drug therapy; Z20.828 Contact with and (suspected) exposure to other viral communicable diseases
CPT/HCPCS: 36415; 71045; 74230; 80048; 80076; 80202; 81003; 81015; 82150; 82550; 82553; 82805; 82947; 83605; 83690; 83735; 84145; 84439; 84443; 84484; 85025; 85610; 85730; 86140; 87040; 87205; 87804; 92611; 93005; 94660; 94760; 96365; 96366; 96368; 99291; 99292; J1100; J2543; J2930; J3370; J3480; J7030; J7050; U0003